=== PATIENT | male | born 1990 | race Caucasian/White ===

== ENCOUNTER 2018-05-21 15:33 | Inpatient (IN) | payer MEDICAID ==
[2018-05-21 16:02] VITALS: BMI 22.6
--- NOTE | 2018-05-21 17:22 | ED PDOC ---
Arrival/HPI - General Chief Complaint: Psychiatric Evaluation Time Seen by Provider: 05/21/18 15:50 Historian: Patient - History of Present Illness Narrative History of Present Illness (Text): 05/21/18 17:17 27-year-old male presents today brought in by his mother for psychiatric evaluation. Patient's mother states that over the past 2 months the patient has lost his job and his left him. She states since then he has been being obsessive and compulsive. She states that he has not been eating and has been taking 7 showers a day. The patient denies any complaints. He denies depression. He denies suicidal ideation. Patient denies headaches dizziness or weakness. No chest pain or shortness of breath. He states he is only here because his mother asked him to come in for evaluation. Time/Duration: > month Past Medical History - Provider Review Nursing Documentation Reviewed: Yes - Travel History Have you recently traveled outside [place] w/in the past 3 mons?: No - Infectious Disease Hx of Infectious Diseases: None - Tetanus Immunization Tetanus Immunization: Unknown - Cardiac Hx Cardiac Disorders: No - Pulmonary Hx Respiratory Disorders: No - Neurological Hx Neurological Disorder: No - HEENT Hx HEENT Disorder: No - Renal Hx Renal Disorder: No - Endocrine/Metabolic Hx Endocrine Disorders: No - Hematological/Oncological Hx Blood Disorders: No - Integumentary Hx Dermatological Disorder: No - Musculoskeletal/Rheumatological Hx Musculoskeletal Disorders: No - Gastrointestinal Hx Gastrointestinal Disorders: No - Genitourinary/Gynecological Hx Genitourinary Disorders: No - Psychiatric Hx Psychophysiologic Disorder: No Hx Substance Use: No - Past Surgical History Past Surgical History: No Previous - Suicidal Assessment Feels Threatened In Home Enviroment: No Family/Social History - Physician Review Nursing Documentation Reviewed: Yes Family/Social History: Unknown Family HX Smoking Status: Never Smoked Hx Alcohol Use: No Hx Substance Use: No Hx Substance Use Treatment: No Allergies/Home Meds Allergies/Adverse Reactions: Allergies No Known Allergies Allergy (Verified 05/21/18 20:47) Review of Systems - Review of Systems Constitutional: absent: Fatigue, Fevers Respiratory: absent: SOB, Cough Cardiovascular: absent: Chest Pain, Palpitations Gastrointestinal: absent: Abdominal Pain, Nausea, Vomiting Musculoskeletal: absent: Arthralgias, Back Pain Skin: absent: Rash, Pruritis Neurological: absent: Headache, Dizziness Psychiatric: absent: Anxiety, Depression, Suicidal Ideation Physical Exam Vital Signs Reviewed: Yes Vital Signs Temp Pulse Resp BP Pulse Ox 05/21/18 16:06 98.4 F 107 H 18 151/110 H 97 Temperature: Afebrile Blood Pressure: Hypertensive Pulse: Tachycardic Respiratory Rate: Normal Appearance: Positive for: Well-Appearing, Non-Toxic, Comfortable Pain Distress: None Mental Status: Positive for: Alert and Oriented X 3 - Systems Exam Head: Present: Atraumatic Pupils: Present: PERRL Extroacular Muscles: Present: EOMI Mouth: Present: Moist Mucous Membranes Neck: Present: Normal Range of Motion Respiratory/Chest: Present: Clear to Auscultation Cardiovascular: Present: Tachycardic. No: Murmurs Abdomen: No: Tenderness, Distention, Rebound, Guarding Back: Present: Normal Inspection Upper Extremity: Present: Normal ROM Lower Extremity: Present: Normal ROM Neurological: Present: GCS=15, Speech Normal Skin: Present: Warm, Dry, Normal Color. No: Rashes Psychiatric: Present: Alert, Oriented x 3 Medical Decision Making ED Course and Treatment: 05/21/18 17:36 Patient is nontoxic well-appearing in no distress CBC WNL CMP WNL Tylenol WNL Salicylate WNL Alcohol level WNL Urine drug screen wnl UA; wnl cxr: wnl ekg normal sinus rhythm at 64 bpm normal axis normal intervals no ST elevations pt is medically cleared for PES evaluation Patient was seen and evaluated by PES screener: linda pt signed voluntarily to Psych floor. Impression; MDD with psychotic features Followup with behavioral health - RAD Interpretation Radiology Orders: 05/21/18 16:14 CHEST PORTABLE [RAD] Stat Disposition/Present on Arrival - Present on Arrival Any Indicators Present on Arrival: No History of DVT/PE: No History of Uncontrolled Diabetes: No Urinary Catheter: No History of Decub. Ulcer: No History Surgical Site Infection Following: None - Disposition Have Diagnosis and Disposition been Completed?: Yes Diagnosis: Major depressive disorder with psychotic features Disposition: HOSPITALIZED Disposition Time: 19:22 Patient Plan: Admission Patient Problems: Current Active Problems Problem Status Onset Major depressive disorder with psychotic features Acute Condition: FAIR
[2018-05-21 18:16] LABS: ACETAMINOPHEN < 10.0 ug/ml (10.0-20.0); ALB/GLOB RATIO 1.4 (1.1-1.8); ALBUMIN 5.1 g/dL (3.0-4.8); ALT/SGPT 11 U/L (7-56); AST/SGOT 20 U/L (17-59); BLOOD UREA NITROGEN 19 mg/dL (7-21); CALCIUM 10.2 mg/dL (8.4-10.5); GFR NON-AFRICAN AMERICAN > 60; SALICYLATE < 1 mg/dL (2.0-20.0)
[2018-05-21 18:27] LABS: BARBITURATES, UR NEGATIVE (NEGATIVE); BENZODIAZEPINES, UR NEGATIVE (NEGATIVE); OPIATES, UR NEGATIVE (NEGATIVE); PHENCYCLIDINE, UR NEGATIVE (NEGATIVE)
[2018-05-21 18:30] LABS: BASO # 0.03 K/mm3 (0.0-2.0); BASO % 0.5 % (0.0-3.0); EOS # 0.1 (0.0-0.7); EOS % 0.8 % (1.5-5.0); HEMOGLOBIN 16.5 g/dL (14.0-18.0); LYMPH # 2.6 (1.2-3.4); LYMPH % 42.2 % (22.0-35.0); MEAN CELL VOLUME 87.7 fl (80.0-105.0); MEAN CORPUSCULAR HEMOGLOBIN 31.3 pg (25.0-35.0); MEAN CORPUSCULAR HGB CONC 35.7 g/dl (31.0-37.0); MEAN PLATELET VOLUME 10.3 fl (7.0-11.0); MONO # 0.6 (0.1-0.6); MONO % 10.2 % (1.0-6.0); RBC 5.27 10^6/uL (3.5-6.1); RED CELL DISTRIBUTION WIDTH 12.2 % (11.5-14.5); URINE BILIRUBIN SMALL (NEGATIVE); URINE BLOOD NEGATIVE (NEGATIVE); URINE GLUCOSE (UA) NEGATIVE (NEGATIVE); URINE LEUKOCYTE ESTERASE NEGATIVE Leu/uL (NEGATIVE); URINE PROTEIN 30 mg/dL (<30 mg/dL); URINE UROBILINOGEN 0.2 E.U./dL (<1 E.U./dL); WHITE BLOOD COUNT 6.1 10^3/uL (4.5-11.0)
[2018-05-21 18:33] LABS: URINE APPEARANCE CLEAR (CLEAR); URINE COLOR YELLOW (YELLOW)
[2018-05-21 18:44] LABS: URINE BACTERIA FEW /hpf; URINE EPITHELIAL CELLS 0 - 2 /hpf (0-5); URINE WBC 0 - 2 /hpf (0-6)
--- NOTE | 2018-05-21 18:46 | RAD ---
Date of service: 05/21/2018 HISTORY: pes COMPARISON: No prior. FINDINGS: LUNGS: The lungs are well inflated and clear. PLEURA: No pleural effusions or pneumothorax. CARDIOVASCULAR: The heart is normal in size. No aortic atherosclerotic calcifications present. OSSEOUS STRUCTURES: Within normal limits for the patient's age. VISUALIZED UPPER ABDOMEN: Normal. OTHER FINDINGS: None. IMPRESSION: No active pulmonary disease.
[2018-05-21] MEDS ORDERED: Magnesium Hydroxide Susp 30 ml UD PO PRN (20:42)
[2018-05-21] MEDS ORDERED: Alum-Mag Hydrox-Simethicone Susp (30 mL) PO PRN (20:42)
--- NOTE | 2018-05-21 21:42 | CARD ---
APPROVED REPORT Date of service: 05/21/2018 EKG Measurement Heart [id number] [id number] <Conclusion> Normal sinus rhythm Normal ECG
[2018-05-21 22:33] VITALS: O2SAT 100
--- NOTE | 2018-05-21 23:26 | PCM.BM ---
<Elida Cooper - Last Filed: 05/21/18 23:22> Treatment Plan Problems - Problems identified on initial assessmt Alteration in Emotional Status Date Initiated: 05/21/18 Time Initiated: 23:23 Assessment reference: NA Status: Active Delusion Date Initiated: 05/21/18 Time Initiated: 23:23 Assessment reference: NA Status: Active Guarded Behavior Date Initiated: 05/21/18 Time Initiated: 23:23 Assessment reference: NA Status: Active Ineffective Coping Date Initiated: 05/21/18 Time Initiated: 23:24 Assessment reference: NA Status: Active Social Isolation Date Initiated: 05/21/18 Time Initiated: 23:24 Assessment reference: NA Status: Active Treatment assets and liabiliti Patient Assests: cooperative, self-reliant, ADL independent, physically healthy, good support system, negotiates basic needs, cognitively intact Patient Liabilities: financial problems, relationship conflicts - Milieu Protocol Maintain good personal hygiene: daily Encourage regular showers, daily Remind patient to perform daily oral care, daily Assist patient to perform ADL's Conduct patient checks and document Observation sheet: Q15 minutes Maintain personal safety: every shift Educate patient to report safety concerns to staff, every shift Monitor environment for contraband/sharps Medication safety: Monitor for expected outcome, potential side effects: every shift, Assess barriers to learning: every shift, Assess readiness for medication education: every shift Discharge/Continuing Care - Education Needs Education Needs: Patient Medication, Patient Diagnosis/Disease Process, Patient Coping Skills, Patient Community resources, Patient Activities of Daily Living, Patient Nutrition, Patient Health Practices/Safety, Patient Personal Hygiene/Grooming, Patient Aftercare Safety Plan - Discharge Discharge Criteria: Tolerates medication w/o severe side effects, Free of Suicidal thoughts, Free of paranoid thoughts, Normal sleep pattern, Ability to care for self, Reduction of target symptoms <Latisha Cano - Last Filed: 05/22/18 15:29> - Diagnosis (1) Psychosis Status: Acute Interventions: 05/22/18 08:53 Psychoeducation/psychotherapy Psychopharmacology/adjustment of medications as needed/ monitoring possible side effects Evaluate pt on daily basis Compliance with medications and follow up appointments Long acting medication if pt is noncompliant with pill form Suicide and homicide risk assessment and prevention, coping strategies, safety plan Relapse prevention Reduction of symptoms Improve functional status Possible assertive community treatment Cognitive behavioral therapy Family involvement Possible social skill training as outpatient (2) OCD (obsessive compulsive disorder) Status: Acute Interventions: 05/22/18 15:29 Psychoeducation Psychopharmacology/adjustment of medications as needed/ monitoring possible side effects Evaluate pt on daily basis Compliance with medications and follow up appointments Suicide and homicide risk assessment and prevention, coping strategies, safety plan Relapse prevention Reduction of symptoms Improve functional status Family involvement CBT, SSRI, exposure response prevention as outpatient Supportive therapy <Bibi Gilman Y - Last Filed: 05/23/18 10:15> Family Contact Family involvement: Family/SO is involved Family contact: Patient agrees to contact Family contact name: Karlene Menon(mother) Family contacted how many times per week?: 2
[2018-05-22 07:19] LABS: GLUCOSE,FASTING 78 mg/dL (65-110); HDL CHOLESTEROL 56 mg/dL (29-60)
[2018-05-22 07:29] LABS: LDL CHOLESTEROL 79 mg/dL (0-129)
--- NOTE | 2018-05-22 15:29 | PCM.PSYCH ---
Initial Psychiatric Evaluation - Initial Psychiatric Evaluation Type of Admission: Voluntary Legal Status: Capacity Chief Complaint (in patient's own words): "I would not say that something is wrong with me" Patient's Reaction to Hospitalization: Patient was admitted to the psychiatric inpatient unit for evaluation and stabilization of disorganized thoughts and behavior, acting inappropriately, inability to take care of himself. History of Present Illness and Precipitating Events: Shortly, patient is a 27yr old male presently residing in [facility] with his mother and brother not known previous psychiatric history, denied history of suicidal attempts, patient was brought in by his mother for evalua tion of bizarre/disorganized behavior, patient was talking nonsense, self isolating, patient signed consent for treatment only because "I wanted to please my mom", patient requires further evaluation, stabilization, medication adjustment. Patient was seen and examined today at the treatment team meeting, patient presented with acceptable personal hygiene, appears with some psychomotor retardation, appears to be poor and unreliable historian, mood ADLs. Patient presented to be odd, seems to be responding to internal stimuli, severe thought blocking, yes no answers only, patient has very poor insight into his problems, patient does not feel that he needs to stay in the hospital, on the question why he sign himself into the hospital patient replied "I just want to please my mom", patient does not feel that he has any problems, patient reported that he does not feel depressed, patient denied hearing voices, denied seeing things, but during the interview patient was switching the glances seems like responding to internal internal stimuli, patient denied feeling paranoid but obviously presented to be guarded. Patient denied ever been abused in his life, denied any anxiety symptoms. It was documented that patient's and daughter left him about a year ago, since that time patient was depressed, when this senior mortgage underwriter asked about the Ativan, patient shrugged his shoulders and said that it is not bothering him. Patient denied any drug use, patient denied alcohol consumption, denies smoking. Patient denied any manic episodes in the past. No manic symptoms elicited. Past psychiatric history: Patient denied ever being evaluated by psychiatrist in the past, patient denied previous psychiatric admissions, patient denied suicidal attempts. Past medical history: Patient denied previous medical history, reported being healthy. Family history: Patient denied family history of mental illness denied suicidal attempts in the family. As per nursing staff observation, since the morning time patient took 3 showers, it took 2 hours for the patient to show up for breakfast, patient is constantly washing his hands, appears to be disorganized, internally preoccupied. Patient gave written consent for collateral information from mother. 05/21/18 17:45 05/21/18 17:45 Lab Results 05/22/18 06:50: TSH 3rd Generation 0.85 05/22/18 06:50: Fasting Glucose 78, Triglycerides 80, Cholesterol 158, LDL Cholesterol Direct 79, HDL Cholesterol 56 05/21/18 17:45: Alcohol, Quantitative < 10 05/21/18 17:45: Salicylates < 1 L, Acetaminophen < 10.0 L 05/21/18 17:45: Urine Opiates Screen Negative, Urine Methadone Screen Negative, Ur Barbiturates Screen Negative, Ur Phencyclidine Scrn Negative, Ur Amphetamines Screen Negative, U Benzodiazepines Scrn Negative, U Oth Cocaine Metabols Negative, U Cannabinoids Screen Negative 05/21/18 17:45: Sodium 139, Potassium 4.9, Chloride 99, Carbon Dioxide 29, Anion Gap 17, BUN 19, Creatinine 0.9, Est GFR ( Amer) > 60, Est GFR (Non-Af Amer) > 60, Random Glucose 80, Calcium 10.2, Total Bilirubin 0.9, AST 20, ALT 11, Alkaline Phosphatase 67, Total Protein 8.7 H, Albumin 5.1 H, Globulin 3.6, Albumin/Globulin Ratio 1.4 05/21/18 17:45: Urine Color Yellow, Urine Appearance Clear, Urine pH 6.0, Ur Specific Green >= 1.030, Urine Protein 30 H, Urine Glucose (UA) Negative, Urine Ketones 40 H, Urine Blood Negative, Urine Nitrate Negative, Urine Bilirubin Small H, Urine Urobilinogen 0.2, Ur Leukocyte Esterase Negative, Urine RBC None, Urine WBC 0 - 2, Ur Epithelial Cells 0 - 2, Urine Bacteria Few, Urine Other Usperm 05/21/18 17:45: WBC 6.1, RBC 5.27, Hgb 16.5, Hct 46.2, MCV 87.7, MCH 31.3, MCHC 35.7, RDW 12.2, Plt Count 309, MPV 10.3, Neut % (Auto) 46.3 L, Lymph % (Auto) 42.2 H, Pender % (Auto) 10.2 H, Eos % (Auto) 0.8 L, Baso % (Auto) 0.5, Lymph # (Auto) 2.6, Pender # (Auto) 0.6, Eos # (Auto) 0.1, Baso # (Auto) 0.03, Absolute Neuts (auto) 2.80 Vital Signs Temp Pulse Resp BP Pulse Ox 05/22/18 07:28 97.0 F L 51 L 20 106/72 05/21/18 20:58 98 F 91 H 18 130/74 100 05/21/18 20:03 97.8 F 78 18 134/81 98 05/21/18 19:23 97.8 F 78 18 134/81 98 05/21/18 16:06 98.4 F 107 H 18 151/110 H 97 The patient failed the outpatient lower level of care: Yes Current Medications: Active Medications Generic Name Dose Route Start Last Admin Trade Name Freq PRN Reason Stop Dose Admin Acetaminophen 650 mg 05/21/18 20:42 Tylenol 325mg Tab PO Q6H PRN Pain, moderate (4-7) Al Hydrox/Mg Hydrox/Simethicone 30 ml 05/21/18 20:42 Maalox Plus 30 Ml PO DAILY PRN Indigestion / Heartburn Lorazepam 2 mg 05/21/18 20:42 Ativan IM Q6H PRN Agitation Protocol Lorazepam 2 mg 05/21/18 20:42 Ativan PO Q6H PRN Psychosis/anxiety Protocol Magnesium Hydroxide 30 ml 05/21/18 20:42 Milk Of Magnesia PO DAILY PRN Constipation Quetiapine Fumarate 50 mg 05/21/18 22:00 05/21/18 21:34 Seroquel PO 50 mg HS PASCUAL Administration Protocol Ziprasidone 20 mg 05/21/18 20:42 Geodon Cap PO Q6H PRN Psychosis/agitation Protocol Ziprasidone 20 mg 05/21/18 20:42 Geodon Inj IM Q6H PRN Agitation Protocol Zolpidem Tartrate 5 mg 05/21/18 20:42 Ambien PO HS PRN Insomnia Protocol Present on Admission - Present on Admission Any Indicators Present on Admission: No Review of Systems - Review of Systems Systems not reviewed;Unavailable: Acuity of Condition - Constitutional Constitutional: As Per HPI - EENT Eyes: As Per HPI Ears: As Per HPI Nose/Mouth/Throat: As Per HPI - Cardiovascular Cardiovascular: As Per HPI - Respiratory Respiratory: As Per HPI - Gastrointestinal Gastrointestinal: As Per HPI - Genitourinary Genitourinary: As Per HPI - Reproductive: Male Reproductive:Male: As Per HPI - Musculoskeletal Musculoskeletal: As Per HPI - Integumentary Integumentary: As Per HPI - Neurological Neurological: As Per HPI - Psychiatric Psychiatric: As Per HPI - Endocrine Endocrine: As Per HPI - Hematologic/Lymphatic Hematologic: As Per HPI Past Patient History - Past Psychiatric History Previous Treatment History: None Prior Professional Help: See HPI Prior Psychiatric Treatment: See HPI At what hospital: See HPI Duration: See HPI Nature of Treatment: See HPI Explanation of prior treatment: See HPI - PSYCHIATRIC Hx Psychophysiologic Disorder: No Hx Substance Use: No - Infectious Disease Hx of Infectious Diseases: None - Tetanus Immunizations Tetanus Immunization: Unknown - CARDIAC Hx Cardiac Disorders: No - PULMONARY Hx Respiratory Disorders: No - NEUROLOGICAL Hx Neurological Disorder: No - HEENT Hx HEENT Problems: No - RENAL Hx Chronic Kidney Disease: No - ENDOCRINE/METABOLIC Hx Endocrine Disorders: No - HEMATOLOGICAL/ONCOLOGICAL Hx Blood Disorders: No - INTEGUMENTARY Hx Dermatological Problems: No - MUSCULOSKELETAL/RHEUMATOLOGICAL Hx Musculoskeletal Disorders: No - GASTROINTESTINAL Hx Gastrointestinal Disorders: No - GENITOURINARY/GYNECOLOGICAL Hx Genitourinary Disorders: No - SURGICAL HISTORY Hx Surgeries: No - Medical/Surgical History Reviewed & confirmed: by [place] Meds Allergies/Adverse Reactions: Allergies Allergy/AdvReac Type Severity Reaction Status Date / Time No Known Allergies Allergy Verified 05/21/18 20:47 Mental Status Examination - Personal Presentation Personal Presentation: Looks stated age - Affect Affect: Flat - Motor Activity Motor Activity: Psychomotor Retardation - Reliability in Providing Information Reliability in Providing Information: Poor, due to alteration in thoughts, Poor, due to altered mood, Poor, due to cognitve impairment - Speech Speech: Other (Underproductive low volume) - Mood Mood: Neutral ("I feel fine") - Formal Thought Process Formal Thought Process: Paranoia, Loosening of associations, Other (Disorganized thoughts, concrete) - Obsessions/Compulsions Obsessions: Yes Compulsions: Yes Description of Obsession/Compulsion: Obsessed with washing his hands, taking showers - Cognitive Functions Orientation: Person, Place, Situation, Time Sensorium: Alert Abstract Thinking: [place] Estimate of Intelligence: Average - Risk Risk: Diminished functioning - Strength & Assets Inventory Strength & Assets Inventory: Family support, Employment history, Cooperative - Limitations Limitations: Other (Severe symptoms, poor insight) Psychiatric Physical Exam - Physical Exam Reviewed and confirmed: Emergency Department Physical Exam Results - Vital Signs Recent Vital Signs: Last Vital Signs Temp 97.0 F L 05/22/18 07:28 Pulse 51 L 05/22/18 07:28 Resp 20 05/22/18 07:28 BP 106/72 05/22/18 07:28 Pulse Ox 100 05/21/18 20:58 - Labs Result Diagrams: 05/21/18 17:45 05/21/18 17:45 Labs: Laboratory Results - last 24 hr 05/21/18 05/21/18 05/21/18 17:45 17:45 17:45 WBC 6.1 RBC 5.27 Hgb 16.5 Hct 46.2 MCV 87.7 MCH 31.3 MCHC 35.7 RDW 12.2 Plt Count 309 MPV 10.3 Neut % (Auto) 46.3 L Lymph % (Auto) 42.2 H Pender % (Auto) 10.2 H Eos % (Auto) 0.8 L Baso % (Auto) 0.5 Lymph # (Auto) 2.6 Pender # (Auto) 0.6 Eos # (Auto) 0.1 Baso # (Auto) 0.03 Absolute Neuts (auto) 2.80 Sodium 139 Potassium 4.9 Chloride 99 Carbon Dioxide 29 Anion Gap 17 BUN 19 Creatinine 0.9 Est GFR ( Amer) > 60 Est GFR (Non-Af Amer) > 60 Random Glucose 80 Fasting Glucose Calcium 10.2 Total Bilirubin 0.9 AST 20 ALT 11 Alkaline Phosphatase 67 Total Protein 8.7 H Albumin 5.1 H Globulin 3.6 Albumin/Globulin Ratio 1.4 Triglycerides Cholesterol LDL Cholesterol Direct HDL Cholesterol TSH 3rd Generation Urine Color Yellow Urine Appearance Clear Urine pH 6.0 Ur Specific Green >= 1.030 Urine Protein 30 H Urine Glucose (UA) Negative Urine Ketones 40 H Urine Blood Negative Urine Nitrate Negative Urine Bilirubin Small H Urine Urobilinogen 0.2 Ur Leukocyte Esterase Negative Urine RBC None Urine WBC 0 - 2 Ur Epithelial Cells 0 - 2 Urine Bacteria Few Urine Other Usperm Salicylates Urine Opiates Screen Urine Methadone Screen Acetaminophen Ur Barbiturates Screen Ur Phencyclidine Scrn Ur Amphetamines Screen U Benzodiazepines Scrn U Oth Cocaine Metabols U Cannabinoids Screen Alcohol, Quantitative 05/21/18 05/21/18 05/21/18 17:45 17:45 17:45 WBC RBC Hgb Hct MCV MCH MCHC RDW Plt Count MPV Neut % (Auto) Lymph % (Auto) Pender % (Auto) Eos % (Auto) Baso % (Auto) Lymph # (Auto) Pender # (Auto) Eos # (Auto) Baso # (Auto) Absolute Neuts (auto) Sodium Potassium Chloride Carbon Dioxide Anion Gap BUN Creatinine Est GFR ( Amer) Est GFR (Non-Af Amer) Random Glucose Fasting Glucose Calcium Total Bilirubin AST ALT Alkaline Phosphatase Total Protein Albumin Globulin Albumin/Globulin Ratio Triglycerides Cholesterol LDL Cholesterol Direct HDL Cholesterol TSH 3rd Generation Urine Color Urine Appearance Urine pH Ur Specific Green Urine Protein Urine Glucose (UA) Urine Ketones Urine Blood Urine Nitrate Urine Bilirubin Urine Urobilinogen Ur Leukocyte Esterase Urine RBC Urine WBC Ur Epithelial Cells Urine Bacteria Urine Other Salicylates < 1 L Urine Opiates Screen Negative Urine Methadone Screen Negative Acetaminophen < 10.0 L Ur Barbiturates Screen Negative Ur Phencyclidine Scrn Negative Ur Amphetamines Screen Negative U Benzodiazepines Scrn Negative U Oth Cocaine Metabols Negative U Cannabinoids Screen Negative Alcohol, Quantitative < 10 05/22/18 05/22/18 06:50 06:50 WBC RBC Hgb Hct MCV MCH MCHC RDW Plt Count MPV Neut % (Auto) Lymph % (Auto) Pender % (Auto) Eos % (Auto) Baso % (Auto) Lymph # (Auto) Pender # (Auto) Eos # (Auto) Baso # (Auto) Absolute Neuts (auto) Sodium Potassium Chloride Carbon Dioxide Anion Gap BUN Creatinine Est GFR ( Amer) Est GFR (Non-Af Amer) Random Glucose Fasting Glucose 78 Calcium Total Bilirubin AST ALT Alkaline Phosphatase Total Protein Albumin Globulin Albumin/Globulin Ratio Triglycerides 80 Cholesterol 158 LDL Cholesterol Direct 79 HDL Cholesterol 56 TSH 3rd Generation 0.85 Urine Color Urine Appearance Urine pH Ur Specific Green Urine Protein Urine Glucose (UA) Urine Ketones Urine Blood Urine Nitrate Urine Bilirubin Urine Urobilinogen Ur Leukocyte Esterase Urine RBC Urine WBC Ur Epithelial Cells Urine Bacteria Urine Other Salicylates Urine Opiates Screen Urine Methadone Screen Acetaminophen Ur Barbiturates Screen Ur Phencyclidine Scrn Ur Amphetamines Screen U Benzodiazepines Scrn U Oth Cocaine Metabols U Cannabinoids Screen Alcohol, Quantitative - EKG Data EKG Interpreted by: ER Physician EKG shows normal: Sinus rhythm DSM Plan - DSM 5 DSM 5 Diagnosis: Psychosis NOS Rule out major depressive disorder, severe with psychosis Rule out OCD - Recommended/Plan of Treatment Treatment Recommendations and Plan of Treatment: PALMA consultation for discharge plan and social issues Med management: Risperdal 0.5 mg twice a day and at the nighttime for psychosis Ativan 0.5 mg twice a day and the delayed time for catatonia possible anxiety Collateral information will be obtained from patient's family Follow up on labs Will monitor closely Pt was educated about risk/benefits and alternatives of medications, coping strategies (safety plan, suicide prevention), relapse prevention, importance of follow up with psychiatrist and therapist, stay away from drugs/alcohol/smoking Projected ELOS: 7 days Prognosis: Fair Discharge Plan and Discharge Criteria: Mood will be stable, pt will be more hopeful, will be not psychotic or anxious, will be tolerating medications well, will not have major side effects, will be able to function, will not pose threat to self or others. - Tobacco Cessation Tobacco Use Status for the last 30 days: Non User Tobacco Use Treatment Practical Counseling Provided: No Tobacco Use Treatment FDA-Approved Cessation Medication Provided: No - Alcohol or Substance Abuse Does the patient have an Alcohol or Substance Abuse Disorder: No Initial Psych Certification - Initial Certification I certify that the inpatient psychiatric facility admission was medically necessary for either: Treatment which could reasonbly be expected to improve pt's condition I estimate of hospitalization is necessary for proper treatment of the patient: 7 Unit of Time: Days My plans for post-hospital care for this patient are: Day treatment program
--- NOTE | 2018-05-23 15:19 | PCM.PYCHPN ---
Psychiatric Progress Note - Psychiatric Progress Note Patient seen today, length of contact: 30 minutes Patient Chief Complaint: "...."pt was just shrugging his shoulders, not talking, smiling inappropriately Problems Identified/Issues Discussed: This health underwriter attempted to discuss risk/benefits and alternatives of medications discussed, suicide/ homicide prevention, past psychiatric h/o, current psychiatric symptoms, medical problems, risk/benefits and alternatives of medi cations, medications compliance, coping strategies, substance abuse h/o, relapse prevention, importance of follow up with psychiatrist and therapist, discharge plan. Patient was just smiling back to this health underwriter, shrugging his shoulders. Medical Problems: See HPI Diagnostic Results: 05/21/18 17:45 05/21/18 17:45 Lab Results 05/22/18 06:50: RPR Nonreactive 05/22/18 06:50: TSH 3rd Generation 0.85 05/22/18 06:50: Fasting Glucose 78, Triglycerides 80, Cholesterol 158, LDL Cholesterol Direct 79, HDL Cholesterol 56 05/21/18 17:45: Alcohol, Quantitative < 10 05/21/18 17:45: Salicylates < 1 L, Acetaminophen < 10.0 L 05/21/18 17:45: Urine Opiates Screen Negative, Urine Methadone Screen Negative, Ur Barbiturates Screen Negative, Ur Phencyclidine Scrn Negative, Ur Amphetamines Screen Negative, U Benzodiazepines Scrn Negative, U Oth Cocaine Metabols Negative, U Cannabinoids Screen Negative 05/21/18 17:45: Sodium 139, Potassium 4.9, Chloride 99, Carbon Dioxide 29, Anion Gap 17, BUN 19, Creatinine 0.9, Est GFR ( Amer) > 60, Est GFR (Non-Af Amer) > 60, Random Glucose 80, Calcium 10.2, Total Bilirubin 0.9, AST 20, ALT 11, Alkaline Phosphatase 67, Total Protein 8.7 H, Albumin 5.1 H, Globulin 3.6, Albumin/Globulin Ratio 1.4 05/21/18 17:45: Urine Color Yellow, Urine Appearance Clear, Urine pH 6.0, Ur Specific [place] >= 1.030, Urine Protein 30 H, Urine Glucose (UA) Negative, Urine Ketones 40 H, Urine Blood Negative, Urine Nitrate Negative, Urine Bilirubin Small H, Urine Urobilinogen 0.2, Ur Leukocyte Esterase Negative, Urine RBC None, Urine WBC 0 - 2, Ur Epithelial Cells 0 - 2, Urine Bacteria Few, Urine Other Usperm 05/21/18 17:45: WBC 6.1, RBC 5.27, Hgb 16.5, Hct 46.2, MCV 87.7, MCH 31.3, MCHC 35.7, RDW 12.2, Plt Count 309, MPV 10.3, Neut % (Auto) 46.3 L, Lymph % (Auto) 42.2 H, [place] % (Auto) 10.2 H, Eos % (Auto) 0.8 L, Baso % (Auto) 0.5, Lymph # (Auto) 2.6, [place] # (Auto) 0.6, Eos # (Auto) 0.1, Baso # (Auto) 0.03, Absolute Neuts (auto) 2.80 Vital Signs Temp Pulse Resp BP Pulse Ox 05/23/18 07:03 97.3 F L 57 L 20 124/58 L 05/22/18 16:00 98 H 124/72 05/22/18 07:28 97.0 F L 51 L 20 106/72 05/21/18 20:58 98 F 91 H 18 130/74 100 05/21/18 20:03 97.8 F 78 18 134/81 98 05/21/18 19:23 97.8 F 78 18 134/81 98 05/21/18 16:06 98.4 F 107 H 18 151/110 H 97 DSM 5 Symptoms Update: Shortly, patient is a 27yr old male presently residing in [facility] with his mother and brother not known previous psychiatric history, denied history of suicidal attempts, patient was brought in by his mother for evaluation of bizarre/disorganized behavior, patient was talking nonsense, self isolating, patient signed consent for treatment only because "I wanted to please my mom", patient requires further evaluation, stabilization, medication adjustment. Patient was seen and examined today in his room, patient presented to be psychotic, not talking, just smiling inappropriately to this health underwriter, patient was shrugging his shoulders for all of the questions. As per nursing report patient seems to be psychotic, taking a lot of showers, not socializing with others. Collaterals from the patient's mother, patient started to have OCD symptoms since summer, prior to that pt was depressed over the fact that his was not allowing him to talk to his daughter. Patient never been admitted to the psychiatric inpatient unit, patient never tried to kill himself before, patient has history of marijuana abuse. Please see social media content manager notes for more detailed information. So far patient tolerates medications well, no side effects observed or reported, aims 0, no EPS impression: DSM 5 Diagnosis: Psychosis NOS Rule out major depressive disorder, severe with psychosis Rule out OCD Medication Change: Yes (Prozac started) Medical Record Reviewed: Yes Consults ordered or reviewed: Neurology consult was called Mental Status Examination - Cognitive Function Orientation: Person, Place, Situation, Time Attention: Poor Concentration: Poor Association: Loose - Mood Mood: Neutral ("I feel fine") - Affect Affect: Flat - Formal Thought Process Formal Thought Process: Paranoia, Loosening of associations, Other (Disorganized thoughts, concrete) - Suicidal Ideation Suicidal Ideation: No - Homicidal Ideation Homicidal Ideation: No Goal/Treatment Plan - Goal/Treatment Plan Need for Continued Stay: Remain at risks for inpatient hospitalization, Severe depression anxiety, Discharge may exacerbated symptoms, Severe functional impairment Progress Toward Problem(s) and Goals/Treatment Plan: consultation for discharge plan and social issues Med management: Risperdal 0.5 mg twice a day and 1mg at the nighttime for psychosis Ativan 0.5 mg twice a day and the delayed time for catatonia possible anxiety prozac 10mg po daily for depression/anxiety/OCD Collateral information will be obtained from patient's family Follow up on labs Will monitor closely Pt was educated about risk/benefits and alternatives of medications, coping strategies (safety plan, suicide prevention), relapse prevention, importance of follow up with psychiatrist and therapist, stay away from drugs/alcohol/smoking Estimated Date of D/C: 05/29/18
--- NOTE | 2018-05-24 13:08 | MRI ---
Date of service: 05/24/2018 PROCEDURE: MRI BRAIN WITHOUT CONTRAST HISTORY: rule out ischemia COMPARISON: None available. TECHNIQUE: Multiplanar, multisequence MR images of the brain were obtained without intravenous contrast enhancement. FINDINGS: HEMORRHAGE: None DWI: No evidence of an acute or early subacute infarction. BRAIN PARENCHYMA: No mass effect or edema. No atrophy or chronic microvascular ischemic changes. VENTRICLES: Unremarkable. No hydrocephalus. CRANIUM: Unremarkable. ORBITS: Grossly unremarkable. PARANASAL SINUSES/MASTOIDS: Clear VASCULAR SYSTEM: Skull base flow voids intact. OTHER FINDINGS: None. IMPRESSION: Unremarkable non contrast enhanced MRI of the brain.
--- NOTE | 2018-05-24 13:36 | CP.PCM.CON ---
Past Patient History - Infectious Disease Hx of Infectious Diseases: None - Tetanus Immunizations Tetanus Immunization: Unknown - Past Social History Smoking Status: Never Smoked - CARDIAC Hx Cardiac Disorders: No - PULMONARY Hx Respiratory Disorders: No - NEUROLOGICAL Hx Neurological Disorder: No - HEENT Hx HEENT Problems: No - RENAL Hx Chronic Kidney Disease: No - ENDOCRINE/METABOLIC Hx Endocrine Disorders: No - HEMATOLOGICAL/ONCOLOGICAL Hx Blood Disorders: No - INTEGUMENTARY Hx Dermatological Problems: No - MUSCULOSKELETAL/RHEUMATOLOGICAL Hx Musculoskeletal Disorders: No - GASTROINTESTINAL Hx Gastrointestinal Disorders: No - GENITOURINARY/GYNECOLOGICAL Hx Genitourinary Disorders: No - PSYCHIATRIC Hx Psychophysiologic Disorder: No Hx Substance Use: No - SURGICAL HISTORY Hx Surgeries: No Meds Allergies/Adverse Reactions: Allergies Allergy/AdvReac Type Severity Reaction Status Date / Time No Known Allergies Allergy Verified 05/21/18 20:47 - Medications Medications: Current Medications Acetaminophen (Tylenol 325mg Tab) 650 mg PO Q6H PRN PRN Reason: Pain, moderate (4-7) Al Hydrox/Mg Hydrox/Simethicone (Maalox Plus 30 Ml) 30 ml PO DAILY PRN PRN Reason: Indigestion / Heartburn Fluoxetine HCl (Prozac) 10 mg PO DAILY PASCUAL Last Admin: 05/24/18 08:12 Dose: 10 mg Lorazepam (Ativan) 2 mg IM Q6H PRN; Protocol PRN Reason: Agitation Lorazepam (Ativan) 2 mg PO Q6H PRN; Protocol PRN Reason: Psychosis/anxiety Lorazepam (Ativan) 0.5 mg PO BID PASCUAL; Protocol Last Admin: 05/24/18 08:12 Dose: 0.5 mg Lorazepam (Ativan) 0.5 mg PO HS PASCUAL; Protocol Last Admin: 05/23/18 21:08 Dose: 0.5 mg Magnesium Hydroxide (Milk Of Magnesia) 30 ml PO DAILY PRN PRN Reason: Constipation Risperidone (Risperdal Tab) 0.5 mg PO BID PASCUAL; Protocol Last Admin: 05/24/18 08:12 Dose: 0.5 mg Risperidone (Risperdal Tab) 1 mg PO HS PASCUAL; Protocol Last Admin: 05/23/18 21:08 Dose: 1 mg Ziprasidone (Geodon Cap) 20 mg PO Q6H PRN; Protocol PRN Reason: Psychosis/agitation Last Admin: 05/22/18 22:16 Dose: 20 mg Ziprasidone (Geodon Inj) 20 mg IM Q6H PRN; Protocol PRN Reason: Agitation Zolpidem Tartrate (Ambien) 5 mg PO HS PRN; Protocol PRN Reason: Insomnia Last Admin: 05/23/18 22:35 Dose: 5 mg Results - Vital Signs Recent Vital Signs: Last Vital Signs Temp 97.8 F 05/24/18 07:33 Pulse 80 05/24/18 07:33 Resp 20 05/24/18 07:33 BP 119/70 05/24/18 07:33 Pulse Ox 100 05/21/18 20:58 - Labs Result Diagrams: 05/21/18 17:45 05/21/18 17:45
--- NOTE | 2018-05-24 13:41 | CP.PCM.CON ---
<Jacob Stark - Last Filed: 05/24/18 13:46> History of Present Illness - History of Present Illness History of Present Illness: Jacob Stark PGY2 Neurology Consult Note for Dr. Finch 27-year-old male with no significant past medical history was brought in by his mother for psychiatric evaluation. Patient's mother states that over the past 2 months the patient has lost his job and his left him. She states since then he has been being obsessive and compulsive, not eating and has been taking 7 showers a day. On review of systems patient would not speak and answer questions with a nod. He wrote on paper that he wishes not to talk and no reason was given. Neurology has been consulted to rule out organic causes of his his behavior. PMH: none PSH: none Allergies: none Meds: see MAR Family History: denies Review of Systems - Review of Systems Review of Systems: unable to obtain because patent did not want to speak verbally Past Patient History - Infectious Disease Hx of Infectious Diseases: None - Tetanus Immunizations Tetanus Immunization: Unknown - Past Social History Smoking Status: Never Smoked - CARDIAC Hx Cardiac Disorders: No - PULMONARY Hx Respiratory Disorders: No - NEUROLOGICAL Hx Neurological Disorder: No - HEENT Hx HEENT Problems: No - RENAL Hx Chronic Kidney Disease: No - ENDOCRINE/METABOLIC Hx Endocrine Disorders: No - HEMATOLOGICAL/ONCOLOGICAL Hx Blood Disorders: No - INTEGUMENTARY Hx Dermatological Problems: No - MUSCULOSKELETAL/RHEUMATOLOGICAL Hx Musculoskeletal Disorders: No - GASTROINTESTINAL Hx Gastrointestinal Disorders: No - GENITOURINARY/GYNECOLOGICAL Hx Genitourinary Disorders: No - PSYCHIATRIC Hx Psychophysiologic Disorder: No Hx Substance Use: No - SURGICAL HISTORY Hx Surgeries: No Meds Allergies/Adverse Reactions: Allergies Allergy/AdvReac Type Severity Reaction Status Date / Time No Known Allergies Allergy Verified 05/21/18 20:47 - Medications Medications: Current Medications Acetaminophen (Tylenol 325mg Tab) 650 mg PO Q6H PRN PRN Reason: Pain, moderate (4-7) Al Hydrox/Mg Hydrox/Simethicone (Maalox Plus 30 Ml) 30 ml PO DAILY PRN PRN Reason: Indigestion / Heartburn Fluoxetine HCl (Prozac) 10 mg PO DAILY PASCUAL Last Admin: 05/24/18 08:12 Dose: 10 mg Lorazepam (Ativan) 2 mg IM Q6H PRN; Protocol PRN Reason: Agitation Lorazepam (Ativan) 2 mg PO Q6H PRN; Protocol PRN Reason: Psychosis/anxiety Lorazepam (Ativan) 0.5 mg PO BID PASCUAL; Protocol Last Admin: 05/24/18 08:12 Dose: 0.5 mg Lorazepam (Ativan) 0.5 mg PO HS PASCUAL; Protocol Last Admin: 05/23/18 21:08 Dose: 0.5 mg Magnesium Hydroxide (Milk Of Magnesia) 30 ml PO DAILY PRN PRN Reason: Constipation Risperidone (Risperdal Tab) 0.5 mg PO BID PASCUAL; Protocol Last Admin: 05/24/18 08:12 Dose: 0.5 mg Risperidone (Risperdal Tab) 1 mg PO HS PASCUAL; Protocol Last Admin: 05/23/18 21:08 Dose: 1 mg Ziprasidone (Geodon Cap) 20 mg PO Q6H PRN; Protocol PRN Reason: Psychosis/agitation Last Admin: 05/22/18 22:16 Dose: 20 mg Ziprasidone (Geodon Inj) 20 mg IM Q6H PRN; Protocol PRN Reason: Agitation Zolpidem Tartrate (Ambien) 5 mg PO HS PRN; Protocol PRN Reason: Insomnia Last Admin: 05/23/18 22:35 Dose: 5 mg Physical Exam - Constitutional Appears: Well, Non-toxic, No Acute Distress - Head Exam Head Exam: ATRAUMATIC, NORMAL INSPECTION, NORMOCEPHALIC - Eye Exam Eye Exam: EOMI, Normal appearance - ENT Exam ENT Exam: Mucous Membranes Moist - Respiratory Exam Respiratory Exam: Clear to Auscultation Bilateral, NORMAL BREATHING PATTERN - Cardiovascular Exam Cardiovascular Exam: REGULAR RHYTHM - Neurological Exam Neurological exam: Alert, CN II-XII Intact, Normal Gait, Oriented x3, Reflexes Normal Additional comments: normal gait, no focal sensory or motor deficits noted, cerebellar function in t act, negative romberg Results - Vital Signs Recent Vital Signs: Last Vital Signs Temp 97.8 F 05/24/18 07:33 Pulse 80 05/24/18 07:33 Resp 20 05/24/18 07:33 BP 119/70 05/24/18 07:33 Pulse Ox 100 05/21/18 20:58 - Labs Result Diagrams: 05/21/18 17:45 05/21/18 17:45 Assessment & Plan - Assessment and Plan (Free Text) Plan: Psychosis rule out organic cause -no focal deficits -recommend folate, B12, TSH -MRI brain -EEG -further management as per psychiatry for psychosis <Helena Finch - Last Filed: 06/02/18 10:32> Meds - Medications Medications: Current Medications Acetaminophen (Tylenol 325mg Tab) 650 mg PO Q6H PRN PRN Reason: Pain, moderate (4-7) Al Hydrox/Mg Hydrox/Simethicone (Maalox Plus 30 Ml) 30 ml PO DAILY PRN PRN Reason: Indigestion / Heartburn Benztropine Mesylate (Cogentin) 1 mg PO HS PASCUAL Last Admin: 06/01/18 22:08 Dose: 1 mg Benztropine Mesylate (Cogentin) 1 mg PO DAILY PASCUAL Last Admin: 06/02/18 08:31 Dose: 1 mg Fluoxetine HCl (Prozac) 50 mg PO DAILY PASCUAL Last Admin: 06/02/18 08:30 Dose: 50 mg Lorazepam (Ativan) 2 mg IM Q6H PRN; Protocol PRN Reason: Agitation Lorazepam (Ativan) 2 mg PO Q6H PRN; Protocol PRN Reason: Psychosis/anxiety Lorazepam (Ativan) 1 mg PO DAILY PASCUAL; Protocol Last Admin: 06/02/18 08:30 Dose: 1 mg Lorazepam (Ativan) 2 mg PO HS PASCUAL; Protocol Last Admin: 06/01/18 22:07 Dose: 2 mg Magnesium Hydroxide (Milk Of Magnesia) 30 ml PO DAILY PRN PRN Reason: Constipation Risperidone (Risperdal Tab) 3 mg PO HS PASCUAL; Protocol Last Admin: 06/01/18 22:13 Dose: 3 mg Risperidone (Risperdal Tab) 3 mg PO DAILY PASCUAL; Protocol Last Admin: 06/02/18 08:31 Dose: 3 mg Ziprasidone (Geodon Cap) 20 mg PO Q6H PRN; Protocol PRN Reason: Psychosis/agitation Last Admin: 05/22/18 22:16 Dose: 20 mg Ziprasidone (Geodon Inj) 20 mg IM Q6H PRN; Protocol PRN Reason: Agitation Results - Vital Signs Recent Vital Signs: Last Vital Signs Temp 97.8 F 06/02/18 07:00 Pulse 88 06/02/18 07:00 Resp 18 06/02/18 07:00 BP 118/76 06/02/18 07:00 Pulse Ox 100 05/21/18 20:58 - Labs Result Diagrams: 05/21/18 17:45 05/21/18 17:45 Assessment & Plan - Assessment and Plan (Free Text) Plan: All medical record entries made by the Resident were at my direction and personally dictated by me. I have reviewed the chart and agree that the record accurately reflects my personal performance of the history, physical exam, medical decision making, and the department course for this patient. I have also personally directed, reviewed, and agree with the discharge instructions and disposition Patient with psychosis, who is now selectively mute, and will need MRI BRain to further evaluate. EEG, DR. finch Neurology
--- NOTE | 2018-05-24 15:56 | PCM.PYCHPN ---
Psychiatric Progress Note - Psychiatric Progress Note Patient seen today, length of contact: 30 minutes Patient Chief Complaint: "...."pt was just shrugging his shoulders, not talking, smiling inappropriately Problems Identified/Issues Discussed: This chief underwriter attempted to discuss risk/benefits and alternatives of medications discussed, suicide/ homicide prevention, past psychiatric h/o, current psychiatric symptoms, medical problems, risk/benefits and alternatives of medi cations, medications compliance, coping strategies, substance abuse h/o, relapse prevention, importance of follow up with psychiatrist and therapist, discharge plan. Patient was just smiling back to this chief underwriter, shrugging his shoulders. Medical Problems: See HPI Diagnostic Results: 05/21/18 17:45 05/21/18 17:45 Lab Results 05/22/18 06:50: RPR Nonreactive 05/22/18 06:50: TSH 3rd Generation 0.85 05/22/18 06:50: Fasting Glucose 78, Triglycerides 80, Cholesterol 158, LDL Cholesterol Direct 79, HDL Cholesterol 56 05/21/18 17:45: Alcohol, Quantitative < 10 05/21/18 17:45: Salicylates < 1 L, Acetaminophen < 10.0 L 05/21/18 17:45: Urine Opiates Screen Negative, Urine Methadone Screen Negative, Ur Barbiturates Screen Negative, Ur Phencyclidine Scrn Negative, Ur Amphetamines Screen Negative, U Benzodiazepines Scrn Negative, U Oth Cocaine Metabols Negative, U Cannabinoids Screen Negative 05/21/18 17:45: Sodium 139, Potassium 4.9, Chloride 99, Carbon Dioxide 29, Anion Gap 17, BUN 19, Creatinine 0.9, Est GFR ( Amer) > 60, Est GFR (Non-Af Amer) > 60, Random Glucose 80, Calcium 10.2, Total Bilirubin 0.9, AST 20, ALT 11, Alkaline Phosphatase 67, Total Protein 8.7 H, Albumin 5.1 H, Globulin 3.6, Albumin/Globulin Ratio 1.4 05/21/18 17:45: Urine Color Yellow, Urine Appearance Clear, Urine pH 6.0, Ur Specific [place] >= 1.030, Urine Protein 30 H, Urine Glucose (UA) Negative, Urine Ketones 40 H, Urine Blood Negative, Urine Nitrate Negative, Urine Bilirubin Small H, Urine Urobilinogen 0.2, Ur Leukocyte Esterase Negative, Urine RBC None, Urine WBC 0 - 2, Ur Epithelial Cells 0 - 2, Urine Bacteria Few, Urine Other Usperm 05/21/18 17:45: WBC 6.1, RBC 5.27, Hgb 16.5, Hct 46.2, MCV 87.7, MCH 31.3, MCHC 35.7, RDW 12.2, Plt Count 309, MPV 10.3, Neut % (Auto) 46.3 L, Lymph % (Auto) 42.2 H, [place] % (Auto) 10.2 H, Eos % (Auto) 0.8 L, Baso % (Auto) 0.5, Lymph # (Auto) 2.6, [place] # (Auto) 0.6, Eos # (Auto) 0.1, Baso # (Auto) 0.03, Absolute Neuts (auto) 2.80 Vital Signs Temp Pulse Resp BP Pulse Ox 05/23/18 07:03 97.3 F L 57 L 20 124/58 L 05/22/18 16:00 98 H 124/72 05/22/18 07:28 97.0 F L 51 L 20 106/72 05/21/18 20:58 98 F 91 H 18 130/74 100 05/21/18 20:03 97.8 F 78 18 134/81 98 05/21/18 19:23 97.8 F 78 18 134/81 98 05/21/18 16:06 98.4 F 107 H 18 151/110 H 97 DSM 5 Symptoms Update: Shortly, patient is a 27yr old male presently residing in [facility], [place] with his mother and brother not known previous psychiatric history, denied history of suicidal attempts, patient was brought in by his mother for evaluation of bizarre/disorganized behavior, patient was talking nonsense, self isolating, patient signed consent for treatment only because "I wanted to please my mom", patient requires further evaluation, stabilization, medication adjustment. Patient was seen and examined today in his room, patient presented to be psychotic, not talking, just smiling inappropriately to this chief underwriter, patient was shrugging his shoulders for all of the questions. pt was seen by neurology, MRI WNL, EEG was ordered, B12 ordered, consult appreciated. As per nursing report patient seems to be psychotic, taking a lot of showers, not socializing with others. 05/23/18 Collaterals from the patient's mother, patient started to have OCD symptoms since summer, prior to that pt was depressed over the fact that his was not allowing him to talk to his daughter. Patient never been admitted to the psychiatric inpatient unit, patient never tried to kill himself before, patient has history of marijuana abuse. Please see social work case manager notes for more detailed information. So far patient tolerates medications well, no side effects observed or reported, aims 0, no EPS impression: DSM 5 Diagnosis: Psychosis NOS Rule out major depressive disorder, severe with psychosis Rule out OCD Medication Change: No ( ) Medical Record Reviewed: Yes Mental Status Examination - Cognitive Function Orientation: Person, Place, Situation, Time Attention: Poor Concentration: Poor Association: Loose - Mood Mood: Neutral ("I feel fine") - Affect Affect: Flat - Formal Thought Process Formal Thought Process: Paranoia, Loosening of associations, Other (Disorganized thoughts, concrete) - Suicidal Ideation Suicidal Ideation: No - Homicidal Ideation Homicidal Ideation: No Goal/Treatment Plan - Goal/Treatment Plan Need for Continued Stay: Remain at risks for inpatient hospitalization, Severe depression anxiety, Discharge may exacerbated symptoms, Severe functional impairment Progress Toward Problem(s) and Goals/Treatment Plan: consultation for discharge plan and social issues Med management: Risperdal 0.5 mg twice a day and 1mg at the nighttime for psychosis Ativan 0.5 mg twice a day and the delayed time for catatonia possible anxiety prozac 20mg po daily for depression/anxiety/OCD Collateral information will be obtained from patient's family Follow up on labs Will monitor closely Pt was educated about risk/benefits and alternatives of medications, coping strategies (safety plan, suicide prevention), relapse prevention, importance of follow up with psychiatrist and therapist, stay away from drugs/alcohol/smoking Estimated Date of D/C: 05/29/18
--- NOTE | 2018-05-25 10:17 | PCM.PYCHPN ---
Psychiatric Progress Note - Psychiatric Progress Note Patient seen today, length of contact: 30 minutes Problems Identified/Issues Discussed: I reviewed assessment and recent notes. Patient was interviewed at bedside. He is superficially cooperative with my questioning though doesn't appear engaged or motivated in his care. Minimally verbal despite my encouragement. Patient reports that he feels "okay" and denies any new concerns. Specifically denies side effects, discomfort, pain or hallucinations. Patient is internally preoccupied and guarded though not responding to internal stimuli. Staff note that he continues to be disorganized, oddly related, aloof and smiling inappropriately on the unit. He keeps to herself. Nonetheless he has been compliant and there have been no major behavioral issues. Diagnostic Results: Psychosis NOS Rule out major depressive disorder, severe with psychosis Rule out OCD Medication Change: No ( ) Medical Record Reviewed: Yes Mental Status Examination - Cognitive Function Orientation: Person, Place, Situation, Time Attention: Poor Concentration: Poor Association: Loose - Mood Mood: Neutral ("I feel fine") - Affect Affect: Flat - Formal Thought Process Formal Thought Process: Paranoia, Loosening of associations, Other (Disorganized thoughts, concrete) - Suicidal Ideation Suicidal Ideation: No - Homicidal Ideation Homicidal Ideation: No Goal/Treatment Plan - Goal/Treatment Plan Need for Continued Stay: Remain at risks for inpatient hospitalization, Severe depression anxiety, Discharge may exacerbated symptoms, Severe functional impairment Progress Toward Problem(s) and Goals/Treatment Plan: * c/w current tx and plan * No new weekend lab results thus far * Vitals reviewed and noted below: Selected Entries 05/24/18 05/24/18 07:33 16:43 Temperature 97.8 F Pulse Rate 80 79 Respiratory 20 Rate Blood Pressure 119/70 110/58 L Estimated Date of D/C: 05/29/18
--- NOTE | 2018-05-26 11:18 | PCM.PYCHPN ---
Psychiatric Progress Note - Psychiatric Progress Note Patient seen today, length of contact: 30 minutes Problems Identified/Issues Discussed: I reviewed recent notes and patient was interviewed at bedside again. He is oriented x3 and superficially cooperative with my questioning. Remembers me from my visit yesterday. He still doesn't appear engaged or motivated but smiles more during our interaction. Remains minimally verbal despite my encouragement. Patient reports that he feels "okay" and nods in agreement when I ask if he feels improved. He cannot elaborate on how he feels improved. Patient denies any new concerns. Specifically denies side effects, discomfort, pain or hallucinations. Patient is internally preoccupied and guarded though not responding to internal stimuli. Staff note that he continues to be disorganized, oddly related, aloof and smiling inappropriately on the unit. He keeps to herself and needs a lot of encouragement by staff to verbally communicate. Nonetheless he has been compliant and there have been no major behavioral issues. Diagnostic Results: Psychosis NOS Rule out major depressive disorder, severe with psychosis Rule out OCD Medication Change: Yes (risperdal increased and cogentin initiated) Medical Record Reviewed: Yes Mental Status Examination - Cognitive Function Orientation: Person, Place, Situation, Time Attention: Poor Concentration: Poor Association: Loose - Mood Mood: Neutral ("I feel fine") - Affect Affect: Flat - Formal Thought Process Formal Thought Process: Paranoia, Loosening of associations, Other (Disorganized thoughts, concrete) - Suicidal Ideation Suicidal Ideation: No - Homicidal Ideation Homicidal Ideation: No Goal/Treatment Plan - Goal/Treatment Plan Need for Continued Stay: Remain at risks for inpatient hospitalization, Severe depression anxiety, Discharge may exacerbated symptoms, Severe functional impairment Progress Toward Problem(s) and Goals/Treatment Plan: * c/w current tx and plan * Risperdal increased to 1 mg po bid and 1 mg HS for disorganization/negative symptoms. * Cogentin initiated at 1 mg HS on 05/26/18 for EPS prophylaxis * Vitals reviewed and noted below: Selected Entries 05/25/18 05/25/18 07:00 16:17 Temperature 98 F Pulse Rate 68 74 Respiratory 18 Rate Blood Pressure 101/51 L 121/68 * New weekend labs noted below: 05/25/18 06:30 Vitamin B12 543 Estimated Date of D/C: 05/29/18
--- NOTE | 2018-05-27 08:54 | PCM.EEG ---
Electroencephalogram Report - Electroencephalogram Report Procedure Date: 05/25/18 Medication: Risperdal, Fluoxetine, Lorazepam Interpretation: Technical Information: This was a 16 -channel EEG, 1-channel EKG routine EEG performed using an [employer] machine. Electrodes were applied using the 10/20 international placement system. Start 11;58 End; 12;48 Total 50 min Clinical Information: alter mental status During resting wakefulness there was a symmetric posterior dominant rhythm at 8.5-9.5 Hz, 30-50 uV, which was reactive to eye opening and closing. Drowsiness (12;32) was associated with fragmentation of the posterior dominant rhythm and with slow roving eye movements. Hyperventilation was performed no changes in the record seen. Photic stimulation was performed and there were no changes on the record. Focal abnormality; none ECG was associated with a normal sinus rhythm. Impression: This is a normal awake and drowsy electroencephalogram.
--- NOTE | 2018-05-27 13:18 | PCM.PYCHPN ---
Psychiatric Progress Note - Psychiatric Progress Note Patient seen today, length of contact: 30 minutes Patient Chief Complaint: "...."pt was just shrugging his shoulders, not talking, smiling inappropriately Problems Identified/Issues Discussed: This typewriter aligner attempted to discuss risk/benefits and alternatives of medications discussed, suicide/ homicide prevention, past psychiatric h/o, current psychiatric symptoms, medical problems, risk/benefits and alternatives of medi cations, medications compliance, coping strategies, substance abuse h/o, relapse prevention, importance of follow up with psychiatrist and therapist, discharge plan. Patient was just smiling back to this typewriter aligner, shrugging his shoulders. Medical Problems: See HPI Diagnostic Results: 05/21/18 17:45 05/21/18 17:45 Lab Results 05/22/18 06:50: RPR Nonreactive 05/22/18 06:50: TSH 3rd Generation 0.85 05/22/18 06:50: Fasting Glucose 78, Triglycerides 80, Cholesterol 158, LDL Cholesterol Direct 79, HDL Cholesterol 56 05/21/18 17:45: Alcohol, Quantitative < 10 05/21/18 17:45: Salicylates < 1 L, Acetaminophen < 10.0 L 05/21/18 17:45: Urine Opiates Screen Negative, Urine Methadone Screen Negative, Ur Barbiturates Screen Negative, Ur Phencyclidine Scrn Negative, Ur Amphetamines Screen Negative, U Benzodiazepines Scrn Negative, U Oth Cocaine Metabols Negative, U Cannabinoids Screen Negative 05/21/18 17:45: Sodium 139, Potassium 4.9, Chloride 99, Carbon Dioxide 29, Anion Gap 17, BUN 19, Creatinine 0.9, Est GFR ( Amer) > 60, Est GFR (Non-Af Amer) > 60, Random Glucose 80, Calcium 10.2, Total Bilirubin 0.9, AST 20, ALT 11, Alkaline Phosphatase 67, Total Protein 8.7 H, Albumin 5.1 H, Globulin 3.6, Albumin/Globulin Ratio 1.4 05/21/18 17:45: Urine Color Yellow, Urine Appearance Clear, Urine pH 6.0, Ur Specific [place] >= 1.030, Urine Protein 30 H, Urine Glucose (UA) Negative, Urine Ketones 40 H, Urine Blood Negative, Urine Nitrate Negative, Urine Bilirubin Small H, Urine Urobilinogen 0.2, Ur Leukocyte Esterase Negative, Urine RBC None, Urine WBC 0 - 2, Ur Epithelial Cells 0 - 2, Urine Bacteria Few, Urine Other Usperm 05/21/18 17:45: WBC 6.1, RBC 5.27, Hgb 16.5, Hct 46.2, MCV 87.7, MCH 31.3, MCHC 35.7, RDW 12.2, Plt Count 309, MPV 10.3, Neut % (Auto) 46.3 L, Lymph % (Auto) 42.2 H, [place] % (Auto) 10.2 H, Eos % (Auto) 0.8 L, Baso % (Auto) 0.5, Lymph # (Auto) 2.6, [place] # (Auto) 0.6, Eos # (Auto) 0.1, Baso # (Auto) 0.03, Absolute Neuts (auto) 2.80 Vital Signs Temp Pulse Resp BP Pulse Ox 05/23/18 07:03 97.3 F L 57 L 20 124/58 L 05/22/18 16:00 98 H 124/72 05/22/18 07:28 97.0 F L 51 L 20 106/72 05/21/18 20:58 98 F 91 H 18 130/74 100 05/21/18 20:03 97.8 F 78 18 134/81 98 05/21/18 19:23 97.8 F 78 18 134/81 98 05/21/18 16:06 98.4 F 107 H 18 151/110 H 97 DSM 5 Symptoms Update: Shortly, patient is a 27yr old male presently residing in [facility] with his mother and brother not known previous psychiatric history, denied history of suicidal attempts, patient was brought in by his mother for evaluation of bizarre/disorganized behavior, patient was talking nonsense, self isolating, patient signed consent for treatment only because "I wanted to please my mom", patient requires further evaluation, stabilization, medication adjustment. Patient was seen and examined today in his room , patient presented to be psychotic, not talking, just smiling inappropriately to this typewriter aligner, patient was shrugging his shoulders for all of the questions. pt was seen by neurologist, MR Morales WNL, EEG was ordered, B12 ordered, consult appreciated. As per nursing report patient seems to be psychotic, not talking, not socializing with others, self isolating. 05/23/18 Collaterals from the patient's mother, patient started to have OCD symptoms since summer, prior to that pt was depressed over the fact that his was not allowing him to talk to his daughter. Patient never been admitted to the psychiatric inpatient unit, patient never tried to kill himself before, patient has history of marijuana abuse. Please see manager social notes for more detailed information. So far patient tolerates medications well, no side effects observed or reported, aims 0, no EPS impression: DSM 5 Diagnosis: Psychosis NOS Rule out major depressive disorder, severe with psychosis Rule out OCD Medication Change: Yes (Risperdal increased, Ativan increased) Medical Record Reviewed: Yes Mental Status Examination - Cognitive Function Orientation: Person, Place, Situation, Time Attention: Poor Concentration: Poor Association: Loose - Mood Mood: Neutral ("I feel fine") - Affect Affect: Flat - Formal Thought Process Formal Thought Process: Paranoia, Loosening of associations, Other (Disorganized thoughts, concrete) - Suicidal Ideation Suicidal Ideation: No - Homicidal Ideation Homicidal Ideation: No Goal/Treatment Plan - Goal/Treatment Plan Need for Continued Stay: Remain at risks for inpatient hospitalization, Severe depression anxiety, Discharge may exacerbated symptoms, Severe functional impairment Progress Toward Problem(s) and Goals/Treatment Plan: consultation for discharge plan and social issues Med management: Risperdal 1mg twice a day and 2mg at the nighttime for psychosis Ativan 0.5 mg twice a day and 1 mg the delayed time for catatonia possible anxiety prozac 20mg po daily for depression/anxiety/OCD Collateral information will be obtained from patient's family Follow up on labs Will monitor closely Pt was educated about risk/benefits and alternatives of medications, coping strategies (safety plan, suicide prevention), relapse prevention, importance of follow up with psychiatrist and therapist, stay away from drugs/alcohol/smoking Estimated Date of D/C: 05/29/18
--- NOTE | 2018-05-28 15:40 | PCM.PYCHPN ---
Psychiatric Progress Note - Psychiatric Progress Note Patient seen today, length of contact: 30 minutes Patient Chief Complaint: "...."pt was just shrugging his shoulders, not talking, smiling inappropriately Problems Identified/Issues Discussed: This commercial underwriter attempted to discuss risk/benefits and alternatives of medications discussed, suicide/ homicide prevention, past psychiatric h/o, current psychiatric symptoms, medical problems, risk/benefits and alternatives of medi cations, medications compliance, coping strategies, substance abuse h/o, relapse prevention, importance of follow up with psychiatrist and therapist, discharge plan. Patient was just smiling back to this commercial underwriter, shrugging his shoulders. Medical Problems: See HPI Diagnostic Results: 05/21/18 17:45 05/21/18 17:45 Lab Results 05/22/18 06:50: RPR Nonreactive 05/22/18 06:50: TSH 3rd Generation 0.85 05/22/18 06:50: Fasting Glucose 78, Triglycerides 80, Cholesterol 158, LDL Cholesterol Direct 79, HDL Cholesterol 56 05/21/18 17:45: Alcohol, Quantitative < 10 05/21/18 17:45: Salicylates < 1 L, Acetaminophen < 10.0 L 05/21/18 17:45: Urine Opiates Screen Negative, Urine Methadone Screen Negative, Ur Barbiturates Screen Negative, Ur Phencyclidine Scrn Negative, Ur Amphetamines Screen Negative, U Benzodiazepines Scrn Negative, U Oth Cocaine Metabols Negative, U Cannabinoids Screen Negative 05/21/18 17:45: Sodium 139, Potassium 4.9, Chloride 99, Carbon Dioxide 29, Anion Gap 17, BUN 19, Creatinine 0.9, Est GFR ( Amer) > 60, Est GFR (Non-Af Amer) > 60, Random Glucose 80, Calcium 10.2, Total Bilirubin 0.9, AST 20, ALT 11, Alkaline Phosphatase 67, Total Protein 8.7 H, Albumin 5.1 H, Globulin 3.6, Albumin/Globulin Ratio 1.4 05/21/18 17:45: Urine Color Yellow, Urine Appearance Clear, Urine pH 6.0, Ur Specific [place] >= 1.030, Urine Protein 30 H, Urine Glucose (UA) Negative, Urine Ketones 40 H, Urine Blood Negative, Urine Nitrate Negative, Urine Bilirubin Small H, Urine Urobilinogen 0.2, Ur Leukocyte Esterase Negative, Urine RBC None, Urine WBC 0 - 2, Ur Epithelial Cells 0 - 2, Urine Bacteria Few, Urine Other Usperm 05/21/18 17:45: WBC 6.1, RBC 5.27, Hgb 16.5, Hct 46.2, MCV 87.7, MCH 31.3, MCHC 35.7, RDW 12.2, Plt Count 309, MPV 10.3, Neut % (Auto) 46.3 L, Lymph % (Auto) 42.2 H, [place] % (Auto) 10.2 H, Eos % (Auto) 0.8 L, Baso % (Auto) 0.5, Lymph # (Auto) 2.6, [place] # (Auto) 0.6, Eos # (Auto) 0.1, Baso # (Auto) 0.03, Absolute Neuts (auto) 2.80 Vital Signs Temp Pulse Resp BP Pulse Ox 05/23/18 07:03 97.3 F L 57 L 20 124/58 L 05/22/18 16:00 98 H 124/72 05/22/18 07:28 97.0 F L 51 L 20 106/72 05/21/18 20:58 98 F 91 H 18 130/74 100 05/21/18 20:03 97.8 F 78 18 134/81 98 05/21/18 19:23 97.8 F 78 18 134/81 98 05/21/18 16:06 98.4 F 107 H 18 151/110 H 97 DSM 5 Symptoms Update: Shortly, patient is a 27yr old male presently residing in [facility] with his mother and brother not known previous psychiatric history, denied history of suicidal attempts, patient was brought in by his mother for evaluation of bizarre/disorganized behavior, patient was talking nonsense, self isolating, patient signed consent for treatment only because "I wanted to please my mom", patient requires further evaluation, stabilization, medication adjustment. Patient was seen and examined today at the treatment team meeting room, patient presented to be psychotic, not talking, just smiling inappropriately to this commercial underwriter, patient was shrugging his shoulders for all of the questions. pt was se en by neurologist, MRI WNL, EEG was ordered, B12 ordered, consult appreciated. Medication teaching provided, symptoms most likely related to psychosis, pt does not talk for the past 7days. at the same time pt has some positive changes, pt does not have obsessive showering, pt is more visible in the unit, started to attend groups. 05/23/18 Collaterals from the patient's mother, patient started to have OCD symptoms since summer, prior to that pt was depressed over the fact that his was not allowing him to talk to his daughter. Patient never been admitted to the psychiatric inpatient unit, patient never tried to kill himself before, patient has history of marijuana abuse. Please see social media content manager notes for more detailed information. So far patient tolerates medications well, no side effects observed or reported, aims 0, no EPS impression: DSM 5 Diagnosis: Psychosis NOS Rule out major depressive disorder, severe with psychosis Rule out OCD Medication Change: Yes (Risperdal increased) Medical Record Reviewed: Yes Mental Status Examination - Cognitive Function Orientation: Person (Follow-up), Place, Situation, Time Attention: Poor Concentration: Poor Association: Loose - Mood Mood: Neutral ("I feel fine") - Affect Affect: Flat - Formal Thought Process Formal Thought Process: Paranoia, Loosening of associations, Other (Disorganized thoughts, concrete) - Suicidal Ideation Suicidal Ideation: No - Homicidal Ideation Homicidal Ideation: No Goal/Treatment Plan - Goal/Treatment Plan Need for Continued Stay: Remain at risks for inpatient hospitalization, Severe depression anxiety, Discharge may exacerbated symptoms, Severe functional impairment Progress Toward Problem(s) and Goals/Treatment Plan: consultation for discharge plan and social issues Med management: Risperdal 2mg twice a day and 2mg at the nighttime for psychosis Ativan 0.5 mg twice a day and 1 mg the delayed time for catatonia possible anxiety prozac 20mg po daily for depression/anxiety/OCD Collateral information will be obtained from patient's family Follow up on labs Will monitor closely Pt was educated about risk/benefits and alternatives of medications, coping strategies (safety plan, suicide prevention), relapse prevention, importance of follow up with psychiatrist and therapist, stay away from drugs/alcohol/smoking -Medical the patient Blaming Estimated Date of D/C: 05/29/18
--- NOTE | 2018-05-29 14:28 | PCM.PYCHPN ---
Psychiatric Progress Note - Psychiatric Progress Note Patient seen today, length of contact: 30 minutes Patient Chief Complaint: "...."pt was just shrugging his shoulders, not talking, smiling inappropriately Problems Identified/Issues Discussed: Symptoms, reasons for not talking, family meeting, future plans. Medical Problems: See HPI Diagnostic Results: 05/21/18 17:45 05/21/18 17:45 Lab Results 05/22/18 06:50: RPR Nonreactive 05/22/18 06:50: TSH 3rd Generation 0.85 05/22/18 06:50: Fasting Glucose 78, Triglycerides 80, Cholesterol 158, LDL Cholesterol Direct 79, HDL Cholesterol 56 05/21/18 17:45: Alcohol, Quantitative < 10 05/21/18 17:45: Salicylates < 1 L, Acetaminophen < 10.0 L 05/21/18 17:45: Urine Opiates Screen Negative, Urine Methadone Screen Negative, Ur Barbiturates Screen Negative, Ur Phencyclidine Scrn Negative, Ur Amphetamines Screen Negative, U Benzodiazepines Scrn Negative, U Oth Cocaine Metabols Negative, U Cannabinoids Screen Negative 05/21/18 17:45: Sodium 139, Potassium 4.9, Chloride 99, Carbon Dioxide 29, Anion Gap 17, BUN 19, Creatinine 0.9, Est GFR ( Amer) > 60, Est GFR (Non-Af Amer) > 60, Random Glucose 80, Calcium 10.2, Total Bilirubin 0.9, AST 20, ALT 11, Alkaline Phosphatase 67, Total Protein 8.7 H, Albumin 5.1 H, Globulin 3.6, Albumin/Globulin Ratio 1.4 05/21/18 17:45: Urine Color Yellow, Urine Appearance Clear, Urine pH 6.0, Ur Specific [place] >= 1.030, Urine Protein 30 H, Urine Glucose (UA) Negative, Urine Ketones 40 H, Urine Blood Negative, Urine Nitrate Negative, Urine Bilirubin Small H, Urine Urobilinogen 0.2, Ur Leukocyte Esterase Negative, Urine RBC None, Urine WBC 0 - 2, Ur Epithelial Cells 0 - 2, Urine Bacteria Few, Urine Other Usperm 05/21/18 17:45: WBC 6.1, RBC 5.27, Hgb 16.5, Hct 46.2, MCV 87.7, MCH 31.3, MCHC 35.7, RDW 12.2, Plt Count 309, MPV 10.3, Neut % (Auto) 46.3 L, Lymph % (Auto) 42.2 H, [place] % (Auto) 10.2 H, Eos % (Auto) 0.8 L, Baso % (Auto) 0.5, Lymph # (Auto) 2.6, [place] # (Auto) 0.6, Eos # (Auto) 0.1, Baso # (Auto) 0.03, Absolute Neuts (auto) 2.80 Vital Signs Temp Pulse Resp BP Pulse Ox 05/23/18 07:03 97.3 F L 57 L 20 124/58 L 05/22/18 16:00 98 H 124/72 05/22/18 07:28 97.0 F L 51 L 20 106/72 05/21/18 20:58 98 F 91 H 18 130/74 100 05/21/18 20:03 97.8 F 78 18 134/81 98 05/21/18 19:23 97.8 F 78 18 134/81 98 05/21/18 16:06 98.4 F 107 H 18 151/110 H 97 DSM 5 Symptoms Update: Shortly, patient is a 27yr old male presently residing in [facility] with his mother and brother not known previous psychiatric history, denied history of suicidal attempts, patient was brought in by his mother for evaluation of bizarre/disorganized behavior, patient was talking nonsense, self isolating, patient signed consent for treatment only because "I wanted to please my mom", patient requires further evaluation, stabilization, medication adjustment. Patient was seen and examined today at the treatment team meeting, patient presented to be psychotic, not talking, just smiling inappropriately to this copy writer, patient was shrugging his shoulders for all of the questions. Patient was given an assignment yesterday about his improvement in comparison of the time of admission and now. good sign is that pt work on his to do list, pt said at the time of admission "Before hospital: uncontrollable bathing, showers and hand washing, unnoticed behavior of germophobia In hospital: shower once a day wash hand, before and after meals, controlled germophobia and behavior(s) Goals after Hospial: continue to studying and prepare to school, find an outside activity to join" When this copy writer asked about his reasons of not talking patient just shrugs his shoulders, this copy writer asked patient to write down his reasons, after few minutes of thinking patient came out with the idea "I am not talking because I have bad breath due to cavities." Family meeting requested, patient agreed. Medication teaching provided, symptoms most likely related to psychosis, pt does not talk for the past 7days. at the same time pt has some positive changes, pt does not have obsessive showering, pt is more visible in the unit, started to attend groups. 05/23/18 Collaterals from the patient's mother, patient started to have OCD symptoms since summer, prior to that pt was depressed over the fact that his was not allowing him to talk to his daughter. Patient never been admitted to the psychiatric inpatient unit, patient never tried to kill himself before, patient has history of marijuana abuse. Please see licensed master social worker notes for more detailed information. So far patient tolerates medications well, no side effects observed or reported, aims 0, no EPS impression: DSM 5 Diagnosis: Psychosis NOS Rule out major depressive disorder, severe with psychosis Rule out OCD Medication Change: No (Risperdal increased yesterday) Medical Record Reviewed: Yes Mental Status Examination - Cognitive Function Orientation: Person (Follow-up), Place, Situation, Time Attention: Poor Concentration: Poor Association: Loose - Mood Mood: Neutral ("I feel fine") - Affect Affect: Flat - Formal Thought Process Formal Thought Process: Paranoia, Loosening of associations, Other (Disorganized thoughts, concrete) - Suicidal Ideation Suicidal Ideation: No - Homicidal Ideation Homicidal Ideation: No Goal/Treatment Plan - Goal/Treatment Plan Need for Continued Stay: Remain at risks for inpatient hospitalization, Severe depression anxiety, Discharge may exacerbated symptoms, Severe functional impairment Progress Toward Problem(s) and Goals/Treatment Plan: consultation for discharge plan and social issues Med management: Risperdal 2mg twice a day and 2mg at the nighttime for psychosis Ativan 0.5 mg twice a day and 1 mg the delayed time for catatonia possible anxiety prozac 20mg po daily for depression/anxiety/OCD Collateral information will be obtained from patient's family Family meeting requested Follow up on labs Will monitor closely Pt was educated about risk/benefits and alternatives of medications, coping strategies (safety plan, suicide prevention), relapse prevention, importance of follow up with psychiatrist and therapist, stay away from drugs/alcohol/smoking -Medical the patient Blaming Estimated Date of D/C: 05/31/18
--- NOTE | 2018-05-30 15:06 | PCM.PYCHPN ---
Psychiatric Progress Note - Psychiatric Progress Note Patient seen today, length of contact: 30 minutes Patient Chief Complaint: "...."pt was just shrugging his shoulders, not talking, smiling inappropriately Problems Identified/Issues Discussed: Symptoms, reasons for not talking, family meeting, future plans. Medical Problems: See HPI Diagnostic Results: 05/21/18 17:45 05/21/18 17:45 Lab Results 05/22/18 06:50: RPR Nonreactive 05/22/18 06:50: TSH 3rd Generation 0.85 05/22/18 06:50: Fasting Glucose 78, Triglycerides 80, Cholesterol 158, LDL Cholesterol Direct 79, HDL Cholesterol 56 05/21/18 17:45: Alcohol, Quantitative < 10 05/21/18 17:45: Salicylates < 1 L, Acetaminophen < 10.0 L 05/21/18 17:45: Urine Opiates Screen Negative, Urine Methadone Screen Negative, Ur Barbiturates Screen Negative, Ur Phencyclidine Scrn Negative, Ur Amphetamines Screen Negative, U Benzodiazepines Scrn Negative, U Oth Cocaine Metabols Negative, U Cannabinoids Screen Negative 05/21/18 17:45: Sodium 139, Potassium 4.9, Chloride 99, Carbon Dioxide 29, Anion Gap 17, BUN 19, Creatinine 0.9, Est GFR ( Amer) > 60, Est GFR (Non-Af Amer) > 60, Random Glucose 80, Calcium 10.2, Total Bilirubin 0.9, AST 20, ALT 11, Alkaline Phosphatase 67, Total Protein 8.7 H, Albumin 5.1 H, Globulin 3.6, Albumin/Globulin Ratio 1.4 05/21/18 17:45: Urine Color Yellow, Urine Appearance Clear, Urine pH 6.0, Ur Specific [place] >= 1.030, Urine Protein 30 H, Urine Glucose (UA) Negative, Urine Ketones 40 H, Urine Blood Negative, Urine Nitrate Negative, Urine Bilirubin Small H, Urine Urobilinogen 0.2, Ur Leukocyte Esterase Negative, Urine RBC None, Urine WBC 0 - 2, Ur Epithelial Cells 0 - 2, Urine Bacteria Few, Urine Other Usperm 05/21/18 17:45: WBC 6.1, RBC 5.27, Hgb 16.5, Hct 46.2, MCV 87.7, MCH 31.3, MCHC 35.7, RDW 12.2, Plt Count 309, MPV 10.3, Neut % (Auto) 46.3 L, Lymph % (Auto) 42.2 H, [place] % (Auto) 10.2 H, Eos % (Auto) 0.8 L, Baso % (Auto) 0.5, Lymph # (Auto) 2.6, [place] # (Auto) 0.6, Eos # (Auto) 0.1, Baso # (Auto) 0.03, Absolute Neuts (auto) 2.80 Vital Signs Temp Pulse Resp BP Pulse Ox 05/23/18 07:03 97.3 F L 57 L 20 124/58 L 05/22/18 16:00 98 H 124/72 05/22/18 07:28 97.0 F L 51 L 20 106/72 05/21/18 20:58 98 F 91 H 18 130/74 100 05/21/18 20:03 97.8 F 78 18 134/81 98 05/21/18 19:23 97.8 F 78 18 134/81 98 05/21/18 16:06 98.4 F 107 H 18 151/110 H 97 DSM 5 Symptoms Update: Shortly, patient is a 27yr old male presently residing in [facility] with his mother and brother not known previous psychiatric history, denied history of suicidal attempts, patient was brought in by his mother for evaluation of bizarre/disorganized behavior, patient was talking nonsense, self isolating, patient signed consent for treatment only because "I wanted to please my mom", patient requires further evaluation, stabilization, medication adjustment. Patient was seen and examined today next to the nursing station, patient presented to be psychotic, not talking, just smiling inappropriately to this brief writer, patient was shrugging his shoulders for all of the questions. bag worker contacted patient's mother for family meeting, patient mother will come to the hospital tomorrow. As per mother patient had similar episodes in the past, last year patient did not talk for 2 weeks. Medication teaching provided, symptoms most likely related to psychosis, pt does not talk for the past 7days. at the same time pt has some positive changes, pt does not have obsessive showering, pt is more visible in the unit, started to attend groups. 05/23/18 Collaterals from the patient's mother, patient started to have OCD symptoms since summer, prior to that pt was depressed over the fact that his was not allowing him to talk to his daughter. Patient never been admitted to the psych iatric inpatient unit, patient never tried to kill himself before, patient has history of marijuana abuse. Please see social science instructor notes for more detailed information. So far patient tolerates medications well, no side effects observed or reported, aims 0, no EPS impression: DSM 5 Diagnosis: Psychosis NOS Rule out major depressive disorder, severe with psychosis Rule out OCD Medication Change: Yes (Prozac was increased to 40 mg daily) Medical Record Reviewed: Yes Mental Status Examination - Cognitive Function Orientation: Person (Follow-up), Place, Situation, Time Attention: Poor Concentration: Poor Association: Loose - Mood Mood: Neutral ("I feel fine") - Affect Affect: Flat - Formal Thought Process Formal Thought Process: Paranoia, Loosening of associations, Other (Disorganized thoughts, concrete) - Suicidal Ideation Suicidal Ideation: No - Homicidal Ideation Homicidal Ideation: No Goal/Treatment Plan - Goal/Treatment Plan Need for Continued Stay: Remain at risks for inpatient hospitalization, Severe depression anxiety, Discharge may exacerbated symptoms, Severe functional impairment Progress Toward Problem(s) and Goals/Treatment Plan: consultation for discharge plan and social issues Med management: Risperdal 2mg twice a day and 2mg at the nighttime for psychosis Ativan 0.5 mg twice a day and 1 mg the delayed time for catatonia possible anxiety prozac 40mg po daily for depression/anxiety/OCD Collateral information will be obtained from patient's family Family meeting requested Follow up on labs Will monitor closely Pt was educated about risk/benefits and alternatives of medications, coping strategies (safety plan, suicide prevention), relapse prevention, importance of follow up with psychiatrist and therapist, stay away from drugs/alcohol/smoking Family meeting scheduled for tomorrow May 31, 2018 Estimated Date of D/C: 05/31/18
--- NOTE | 2018-05-31 10:11 | PCM.PYCHPN ---
Psychiatric Progress Note - Psychiatric Progress Note Patient seen today, length of contact: 30 minutes Patient Chief Complaint: "...."pt was just shrugging his shoulders, not talking, smiling inappropriately Problems Identified/Issues Discussed: Symptoms, reasons for not talking, family meeting, future plans. Medical Problems: See HPI Diagnostic Results: 05/21/18 17:45 05/21/18 17:45 Lab Results 05/22/18 06:50: RPR Nonreactive 05/22/18 06:50: TSH 3rd Generation 0.85 05/22/18 06:50: Fasting Glucose 78, Triglycerides 80, Cholesterol 158, LDL Cholesterol Direct 79, HDL Cholesterol 56 05/21/18 17:45: Alcohol, Quantitative < 10 05/21/18 17:45: Salicylates < 1 L, Acetaminophen < 10.0 L 05/21/18 17:45: Urine Opiates Screen Negative, Urine Methadone Screen Negative, Ur Barbiturates Screen Negative, Ur Phencyclidine Scrn Negative, Ur Amphetamines Screen Negative, U Benzodiazepines Scrn Negative, U Oth Cocaine Metabols Negative, U Cannabinoids Screen Negative 05/21/18 17:45: Sodium 139, Potassium 4.9, Chloride 99, Carbon Dioxide 29, Anion Gap 17, BUN 19, Creatinine 0.9, Est GFR ( Amer) > 60, Est GFR (Non-Af Amer) > 60, Random Glucose 80, Calcium 10.2, Total Bilirubin 0.9, AST 20, ALT 11, Alkaline Phosphatase 67, Total Protein 8.7 H, Albumin 5.1 H, Globulin 3.6, Albumin/Globulin Ratio 1.4 05/21/18 17:45: Urine Color Yellow, Urine Appearance Clear, Urine pH 6.0, Ur Specific [place] >= 1.030, Urine Protein 30 H, Urine Glucose (UA) Negative, Urine Ketones 40 H, Urine Blood Negative, Urine Nitrate Negative, Urine Bilirubin Small H, Urine Urobilinogen 0.2, Ur Leukocyte Esterase Negative, Urine RBC None, Urine WBC 0 - 2, Ur Epithelial Cells 0 - 2, Urine Bacteria Few, Urine Other Usperm 05/21/18 17:45: WBC 6.1, RBC 5.27, Hgb 16.5, Hct 46.2, MCV 87.7, MCH 31.3, MCHC 35.7, RDW 12.2, Plt Count 309, MPV 10.3, Neut % (Auto) 46.3 L, Lymph % (Auto) 42.2 H, [place] % (Auto) 10.2 H, Eos % (Auto) 0.8 L, Baso % (Auto) 0.5, Lymph # (Auto) 2.6, [place] # (Auto) 0.6, Eos # (Auto) 0.1, Baso # (Auto) 0.03, Absolute Neuts (auto) 2.80 Vital Signs Temp Pulse Resp BP Pulse Ox 05/23/18 07:03 97.3 F L 57 L 20 124/58 L 05/22/18 16:00 98 H 124/72 05/22/18 07:28 97.0 F L 51 L 20 106/72 05/21/18 20:58 98 F 91 H 18 130/74 100 05/21/18 20:03 97.8 F 78 18 134/81 98 05/21/18 19:23 97.8 F 78 18 134/81 98 05/21/18 16:06 98.4 F 107 H 18 151/110 H 97 DSM 5 Symptoms Update: Shortly, patient is a 27yr old male presently residing in [facility] with his mother and brother not known previous psychiatric history, denied history of suicidal attempts, patient was brought in by his mother for evaluation of bizarre/disorganized behavior, patient was talking nonsense, self isolating, patient signed consent for treatment only because "I wanted to please my mom", patient requires further evaluation, stabilization, medication adjustment. Patient was seen at the family meeting, pt's mother Karlene Menon([phone]), and this proposal manager writer participated. pt's mother reported that pt had similar episode about a year ago, pt did not talk for two weeks. mother said that he was explaining later that he didn't want to talk because he did not want to get in trouble by talking. this is pt's first hospitalization, pt had "issues even before", pt was not able to held a job, he lost many jobs and quit 4 colleges because pt was very late for job and school. pt was involved into the relationship with the lady when she was and was raising not his biological daughter, over summer pt moved in [place] from [place] in order to find a job and support his family, but recently pt got to know that his ex- started to date with another male, pt was upset, "he looked like he is lost, he was anxious, shaking, was taking showers nonstop, washing his hands constantly that his hands skin was pilling...". during the meeting patient presented to be psychotic, not talking, just smiling inappropriately to this proposal manager writer, patient was shrugging his shoulders for all of the questions. mother does not feel that pt is ready for discharge, moreover pt will be not able to go for intake appo intment. mother said that schizophrenia runs in family, two of mother's aunts are suffers from schizophrenia with similar symptoms, not talking, started in their 40th. Medication teaching provided, symptoms most likely related to psychosis, pt does not talk for the past 10days. at the same time pt has some positive changes, pt does not have obsessive showering, pt is more visible in the unit, started to attend groups. So far patient tolerates medications well, no side effects observed or reported, aims 0, no EPS impression: DSM 5 Diagnosis: Psychosis NOS Rule out major depressive disorder, severe with psychosis Rule out OCD Medication Change: Yes (prozac increased, ativan/cogentin/risperdal redistributed) Medical Record Reviewed: Yes Mental Status Examination - Cognitive Function Orientation: Person (Follow-up), Place, Situation, Time Attention: Poor (s) Concentration: Poor Association: WNL (some improvement) Fund of Knowledge: WNL - Mood Mood: Neutral ("....") - Affect Affect: Flat - Formal Thought Process Formal Thought Process: Paranoia (cannot be excluded) - Suicidal Ideation Suicidal Ideation: No - Homicidal Ideation Homicidal Ideation: No Goal/Treatment Plan - Goal/Treatment Plan Need for Continued Stay: Remain at risks for inpatient hospitalization, Severe depression anxiety, Discharge may exacerbated symptoms, Severe functional impairment Progress Toward Problem(s) and Goals/Treatment Plan: SW consultation for discharge plan and social issues Med management: Risperdal 3mg twice a day and 3mg at the nighttime for psychosis Ativan 1 mg daily and 2mg hs for catatonia possible anxiety prozac 50mg po daily for depression/anxiety/OCD cogentin 1mg amhs for possible EPS ambien d/c Collateral information will be obtained from patient's family Family meeting requested Follow up on labs Will monitor closely Pt was educated about risk/benefits and alternatives of medications, coping strategies (safety plan, suicide prevention), relapse prevention, importance of follow up with psychiatrist and therapist, stay away from drugs/alcohol/smoking Family meeting scheduled for tomorrow May 31, 2018 Estimated Date of D/C: 06/03/18
--- NOTE | 2018-06-01 09:28 | PCM.PYCHPN ---
Psychiatric Progress Note - Psychiatric Progress Note Patient seen today, length of contact: 30 minutes Problems Identified/Issues Discussed: I reviewed recent notes and patient was interviewed at bedside. He is oriented x3 and superficially cooperative with my questioning. Remembers me from my visits last weekend. He still doesn't appear engaged or motivated but smiles during our interaction. Remains minimally verbal despite my encouragement. Patient reports that he feels "okay" and nods in agreement when I ask if he feels improved. He cannot elaborate on how he feels improved. Patient denies any new concerns. Specifically denies side effects, discomfort, pain or hallucinations. Patient is internally preoccupied and guarded though not responding to internal stimuli. Staff note that he continues to be oddly related, aloof and isolative on the unit. He keeps to herself and needs a lot of encouragement by staff to verbally communicate. He doesn't attend groups. Nonetheless he has been compliant and there have been no major behavioral issues. Diagnostic Results: Psychosis NOS Rule out major depressive disorder, severe with psychosis Rule out OCD Medication Change: No ( ) Medical Record Reviewed: Yes Mental Status Examination - Cognitive Function Orientation: Person (Follow-up), Place, Situation, Time Attention: Poor (s) Concentration: Poor Association: WNL (some improvement) Fund of Knowledge: WNL - Mood Mood: Neutral ("....") - Affect Affect: Flat - Formal Thought Process Formal Thought Process: Paranoia (cannot be excluded) - Suicidal Ideation Suicidal Ideation: No - Homicidal Ideation Homicidal Ideation: No Goal/Treatment Plan - Goal/Treatment Plan Need for Continued Stay: Remain at risks for inpatient hospitalization, Severe depression anxiety, Discharge may exacerbated symptoms, Severe functional impairment Progress Toward Problem(s) and Goals/Treatment Plan: * c/w current treatment and plan * No new weekend lab results thus far * Vitals reviewed and noted below: Selected Entries 05/31/18 05/31/18 07:08 16:10 Temperature 98.0 F Pulse Rate 82 72 Respiratory 20 Rate Blood Pressure 108/58 L 113/63 Estimated Date of D/C: 06/03/18
--- NOTE | 2018-06-02 09:29 | PCM.PYCHPN ---
Psychiatric Progress Note - Psychiatric Progress Note Patient seen today, length of contact: 30 minutes Problems Identified/Issues Discussed: I reviewed recent notes and patient was interviewed at bedside again. He is oriented x3 and superficially cooperative with my questioning. Remembers me from my visits last weekend and yesterday. He still doesn't appear engaged or motivated but smiles during our interaction. Remains minimally verbal despite my encouragement. Patient reports that he feels "okay" and nods in agreement when I ask if he feels improved. He cannot elaborate on how he feels improved. Patient denies any new concerns. Specifically denies side effects, discomfort, pain or h allucinations. Patient is internally preoccupied and guarded though not responding to internal stimuli. He is consistent with his responses during repeated questioning. Staff note that he continues to be oddly related, aloof and isolative on the unit. He keeps to herself and needs a lot of encouragement by staff to verbally communicate. He doesn't attend groups. Nonetheless he has been compliant and there have been no major behavioral issues. Diagnostic Results: Psychosis NOS Rule out major depressive disorder, severe with psychosis Rule out OCD Medication Change: No ( ) Medical Record Reviewed: Yes Mental Status Examination - Cognitive Function Orientation: Person (Follow-up), Place, Situation, Time Attention: Poor (s) Concentration: Poor Association: WNL (some improvement) Fund of Knowledge: WNL - Mood Mood: Neutral ("....") - Affect Affect: Flat - Speech Additional comments: selectively mute, needs much prompting to respond verbally - Formal Thought Process Formal Thought Process: Paranoia (cannot be excluded) - Suicidal Ideation Suicidal Ideation: No - Homicidal Ideation Homicidal Ideation: No Goal/Treatment Plan - Goal/Treatment Plan Need for Continued Stay: Remain at risks for inpatient hospitalization, Severe depression anxiety, Discharge may exacerbated symptoms, Severe functional impairment Progress Toward Problem(s) and Goals/Treatment Plan: * c/w current treatment and plan * No new weekend lab results * Vitals reviewed and noted below: Selected Entries 06/01/18 06/01/18 07:34 16:00 Temperature 98.0 F Pulse Rate 94 H 111 H Respiratory 20 Rate Blood Pressure 116/65 135/76 Estimated Date of D/C: 06/03/18
--- NOTE | 2018-06-03 16:33 | PCM.PYCHPN ---
Psychiatric Progress Note - Psychiatric Progress Note Patient seen today, length of contact: 30 minutes Patient Chief Complaint: "...."pt was just shrugging his shoulders, not talking, smiling inappropriately Problems Identified/Issues Discussed: Symptoms, reasons for not talking, family meeting, future plans. Medical Problems: See HPI Diagnostic Results: 05/21/18 17:45 05/21/18 17:45 Lab Results 05/22/18 06:50: RPR Nonreactive 05/22/18 06:50: TSH 3rd Generation 0.85 05/22/18 06:50: Fasting Glucose 78, Triglycerides 80, Cholesterol 158, LDL Cholesterol Direct 79, HDL Cholesterol 56 05/21/18 17:45: Alcohol, Quantitative < 10 05/21/18 17:45: Salicylates < 1 L, Acetaminophen < 10.0 L 05/21/18 17:45: Urine Opiates Screen Negative, Urine Methadone Screen Negative, Ur Barbiturates Screen Negative, Ur Phencyclidine Scrn Negative, Ur Amphetamines Screen Negative, U Benzodiazepines Scrn Negative, U Oth Cocaine Metabols Negative, U Cannabinoids Screen Negative 05/21/18 17:45: Sodium 139, Potassium 4.9, Chloride 99, Carbon Dioxide 29, Anion Gap 17, BUN 19, Creatinine 0.9, Est GFR ( Amer) > 60, Est GFR (Non-Af Amer) > 60, Random Glucose 80, Calcium 10.2, Total Bilirubin 0.9, AST 20, ALT 11, Alkaline Phosphatase 67, Total Protein 8.7 H, Albumin 5.1 H, Globulin 3.6, Albumin/Globulin Ratio 1.4 05/21/18 17:45: Urine Color Yellow, Urine Appearance Clear, Urine pH 6.0, Ur Specific [place] >= 1.030, Urine Protein 30 H, Urine Glucose (UA) Negative, Urine Ketones 40 H, Urine Blood Negative, Urine Nitrate Negative, Urine Bilirubin Small H, Urine Urobilinogen 0.2, Ur Leukocyte Esterase Negative, Urine RBC None, Urine WBC 0 - 2, Ur Epithelial Cells 0 - 2, Urine Bacteria Few, Urine Other Usperm 05/21/18 17:45: WBC 6.1, RBC 5.27, Hgb 16.5, Hct 46.2, MCV 87.7, MCH 31.3, MCHC 35.7, RDW 12.2, Plt Count 309, MPV 10.3, Neut % (Auto) 46.3 L, Lymph % (Auto) 42.2 H, [place] % (Auto) 10.2 H, Eos % (Auto) 0.8 L, Baso % (Auto) 0.5, Lymph # (Auto) 2.6, [place] # (Auto) 0.6, Eos # (Auto) 0.1, Baso # (Auto) 0.03, Absolute Neuts (auto) 2.80 Vital Signs Temp Pulse Resp BP Pulse Ox 05/23/18 07:03 97.3 F L 57 L 20 124/58 L 05/22/18 16:00 98 H 124/72 05/22/18 07:28 97.0 F L 51 L 20 106/72 05/21/18 20:58 98 F 91 H 18 130/74 100 05/21/18 20:03 97.8 F 78 18 134/81 98 05/21/18 19:23 97.8 F 78 18 134/81 98 05/21/18 16:06 98.4 F 107 H 18 151/110 H 97 DSM 5 Symptoms Update: Shortly, patient is a 27yr old male presently residing in [facility] with his mother and brother not known previous psychiatric history, denied history of suicidal attempts, patient was brought in by his mother for evaluation of bizarre/disorganized behavior, patient was talking nonsense, self isolating, patient signed consent for treatment only because "I wanted to please my mom", patient requires further evaluation, stabilization, medication adjustment. 05/31/18: Patient was seen at the family meeting, pt's mother Karlene Menon([phone]), SW and this conventional mortgage underwriter participated. see previous note for more detailed info. Patient was seen today at the treatment team meeting, patient was compliant with his assignment and wrote down his goals which are, "Become a better student, passed all courses Accept a job that will help my schooling Learn how to budget financially Shadow golTrada; Catty Perfect goals swings Accept that 1-2-day is more than enough" Considering the above patient still presented to be disorganized, still not talking, over the weekend patient presented to be internally preoccupied Medication teaching provided, symptoms most likely related to psychosis, pt does not talk for the past 10days. at the same time pt has some positive changes, pt does not have obsessive s howering, pt is more visible in the unit, started to attend groups. So far patient tolerates medications well, no side effects observed or reported, aims 0, no EPS impression: DSM 5 Diagnosis: Psychosis NOS Rule out major depressive disorder, severe with psychosis Rule out OCD Medication Change: Yes (Prozac increased, haldol 1mg amhs) Medical Record Reviewed: Yes Consults ordered or reviewed: Neurology consult was called Mental Status Examination - Cognitive Function Orientation: Person (Follow-up), Place, Situation, Time Attention: Poor (s) Concentration: Poor Association: WNL (some improvement) Fund of Knowledge: WNL - Mood Mood: Neutral ("....") - Affect Affect: Flat - Formal Thought Process Formal Thought Process: Paranoia (cannot be excluded) - Suicidal Ideation Suicidal Ideation: No - Homicidal Ideation Homicidal Ideation: No Goal/Treatment Plan - Goal/Treatment Plan Need for Continued Stay: Remain at risks for inpatient hospitalization, Severe depression anxiety, Discharge may exacerbated symptoms, Severe functional impairment Progress Toward Problem(s) and Goals/Treatment Plan: consultation for discharge plan and social issues Med management: Risperdal 3mg twice a day and 3mg at the nighttime for psychosis Ativan 1 mg daily and 2mg hs for catatonia possible anxiety prozac 60mg po daily for depression/anxiety/OCD cogentin 1mg amhs for possible EPS haldol 1mg amhs for psychosis ambien d/c Collateral information will be obtained from patient's family Family meeting requested Follow up on labs Will monitor closely Pt was educated about risk/benefits and alternatives of medications, coping strategies (safety plan, suicide prevention), relapse prevention, importance of follow up with psychiatrist and therapist, stay away from drugs/alcohol/smoking Family meeting appreciated May 31, 2018 Estimated Date of D/C: 06/05/18
[2018-06-03] MEDS: Haloperidol Lactate 2 mg/ml Liquid PO SCH (21:28)
[2018-06-04 07:24] VITALS: RESP 20; TEMP 97.5
[2018-06-04] MEDS: Haloperidol Lactate 2 mg/ml Liquid PO SCH (09:47)
--- NOTE | 2018-06-04 15:18 | PCM.PYCHDC ---
Mental Status Examination - Mental Status Examination Orientation: Person, Place, Situation, Time Memory: Intact Mood: Neutral Affect: Broad (at times pt smiles inappropriately) Attention: WNL Concentration: WNL Fund of Knowledge: WNL Formal Thought Process: Other (mildly disorganized) Description of patient's judgement and insight: improved insight, pt was compliant with meds and unit rules, no agitation, no aggression Psychotic Thoughts and Behaviors: pt was not talking for the past 10days, today pt was able to give this policy writer typist few words, at the time of admission pt presented to be disorganized. at the time of d/c, pt presented much better with some residual disorganization of his thoughts. Suicidal Ideation: No Current Homicidal Ideation?: No Plan: pt adamantly denied thoughts of harming self or others. Discharge Summary - Discharge Note Reason for Hospitalization: Patient was admitted to the psychiatric inpatient unit for evaluation and stabilization of disorganized thoughts and behavior, acting inappropriately, inability to take care of himself. Psychiatric History (includes Medical, Family, Personal Hx): See HPI Laboratory Data: 05/21/18 17:45 05/21/18 17:45 Lab Results 05/25/18 06:30: Vitamin B12 543 05/22/18 06:50: RPR Nonreactive 05/22/18 06:50: TSH 3rd Generation 0.85 05/22/18 06:50: Fasting Glucose 78, Triglycerides 80, Cholesterol 158, LDL Cholesterol Direct 79, HDL Cholesterol 56 05/21/18 17:45: Alcohol, Quantitative < 10 05/21/18 17:45: Salicylates < 1 L, Acetaminophen < 10.0 L 05/21/18 17:45: Urine Opiates Screen Negative, Urine Methadone Screen Negative, Ur Barbiturates Screen Negative, Ur Phencyclidine Scrn Negative, Ur Amphetamines Screen Negative, U Benzodiazepines Scrn Negative, U Oth Cocaine Metabols Negative, U Cannabinoids Screen Negative 05/21/18 17:45: Sodium 139, Potassium 4.9, Chloride 99, Carbon Dioxide 29, Anion Gap 17, BUN 19, Creatinine 0.9, Est GFR ( Amer) > 60, Est GFR (Non-Af Amer) > 60, Random Glucose 80, Calcium 10.2, Total Bilirubin 0.9, AST 20, ALT 11, Alkaline Phosphatase 67, Total Protein 8.7 H, Albumin 5.1 H, Globulin 3.6, Albumin/Globulin Ratio 1.4 05/21/18 17:45: Urine Color Yellow, Urine Appearance Clear, Urine pH 6.0, Ur Specific [place] >= 1.030, Urine Protein 30 H, Urine Glucose (UA) Negative, Urine Ketones 40 H, Urine Blood Negative, Urine Nitrate Negative, Urine Bilirubin Small H, Urine Urobilinogen 0.2, Ur Leukocyte Esterase Negative, Urine RBC None, Urine WBC 0 - 2, Ur Epithelial Cells 0 - 2, Urine Bacteria Few, Urine Other Usperm 05/21/18 17:45: WBC 6.1, RBC 5.27, Hgb 16.5, Hct 46.2, MCV 87.7, MCH 31.3, MCHC 35.7, RDW 12.2, Plt Count 309, MPV 10.3, Neut % (Auto) 46.3 L, Lymph % (Auto) 42.2 H, [place] % (Auto) 10.2 H, Eos % (Auto) 0.8 L, Baso % (Auto) 0.5, Lymph # (Auto) 2.6, [place] # (Auto) 0.6, Eos # (Auto) 0.1, Baso # (Auto) 0.03, Absolute Neuts (auto) 2.80 Vital Signs Temp Pulse Resp BP Pulse Ox 06/04/18 07:23 97.5 F L 116 H 20 133/65 06/03/18 15:57 97 H 106/60 06/03/18 07:00 98 H 18 136/87 06/02/18 07:00 97.8 F 88 18 118/76 06/01/18 16:00 111 H 135/76 06/01/18 07:34 98.0 F 94 H 20 116/65 05/31/18 16:10 72 113/63 05/31/18 07:08 98.0 F 82 20 108/58 L 05/30/18 16:00 69 130/71 05/30/18 07:18 97.3 F L 75 20 103/67 05/29/18 16:00 109 H 116/65 05/29/18 07:00 98.1 F 69 20 107/56 L 05/28/18 16:00 56 L 120/79 05/28/18 07:00 97.8 F 88 18 133/72 05/27/18 16:00 69 115/62 05/27/18 07:23 97.9 F 74 20 128/54 L 05/26/18 15:53 74 126/70 05/26/18 07:07 97.8 F 77 16 117/60 05/25/18 16:17 74 121/68 05/25/18 07:00 98 F 68 18 101/51 L 05/24/18 16:43 79 110/58 L 05/24/18 07:33 97.8 F 80 20 119/70 05/23/18 16:00 71 120/64 05/23/18 07:03 97.3 F L 57 L 20 124/58 L 05/22/18 16:00 98 H 124/72 05/22/18 07:28 97.0 F L 51 L 20 106/72 05/21/18 20:58 98 F 91 H 18 130/74 100 05/21/18 20:03 97.8 F 78 18 134/81 98 05/21/18 19:23 97.8 F 78 18 134/81 98 05/21/18 16:06 98.4 F 107 H 18 151/110 H 97 Consultations:: List each consultation separately and include: 1. Reason for request. 2. Findings. 3. Follow-up Consultations: Neurology consult was called please see notes for more detailed info Summary of Hospital Course include:: 1. Description of specific treatment plan utilized for patients during their course of treatmen. 2. Summarize the time- course for resolution of acute symptoms and/or regressed behaviors. 3. Describe issues identified and worked on during hospitalization. 4. Describe medication utilized. 5. Describe medical problems identified and treated. 6. Reassessment of suicide risk Summary of Hospital Course: Shortly, patient is a 27yr old male presently residing in [facility] with his mother and brother not known previous psychiatric history, denied history of suicidal attempts, patient was brought in by his mother for evaluation of bizarre/disorganized behavior, patient was talking nonsense, self isolating, patient signed consent for treatment only because "I wanted to please my mom", patient requires further evaluation, stabilization, medication adjustment. As per nursing staff observation, since the morning time patient took 3 showers, it took 2 hours for the patient to show up for breakfast, patient is constantly washing his hands, appears to be disorganized, internally preoccupied. during this hospitalization pt became mute, was not talking for the past 10 days, family meeting took place with PALMA, pt, PALMA and this policy writer typist, please see notes for more detailed info. pt was seen by neurologist, no organic deficit found, pt had MRI of his head. pt was relatively stabilized on the following medications: Risperdal 3mg twice a day and 3mg at the nighttime for psychosis Ativan 1 mg daily and 2mg hs for catatonia possible anxiety prozac 60mg po daily for depression/anxiety/OCD cogentin 1mg amhs for possible EPS pt tolerated meds well, no side effects observed or reported. AIMS 0, no EPS. pt's mother visited pt evening 06/03/18, reported that pt deems ready for d/c. pt was seen 06/04/18, pt was able to give this policy writer typist few answers, reported that he is ready for discharge. as per staff pt participates in unit activities, no agitation/no aggression/showering only two times a day. as per treatment team pt deems ready for d/c at the moment of d/c pt presented well, pose no imminent danger to self or others. patient [facility] be [facility], time and address provided to the pt, (see SW note for more detailed information). It is a patient responsibility to follow up with outpatient clinic, PMD as well as specialists In case patient will need to obtain results of studies pending at discharge, patient was provided with contact information of Psychiatric Inpatient unit [phone] as well as Medical Record Department [phone], as well as [facility] team [phone]. pt denied using drugs, denied alcohol consumption, denies smoking pt was provided with prescriptions (see medication reconciliation form) Pt was educated about safety plan in case of worsening of symptoms or in case of suicidal or homicidal ideation call 911 or go to the nearest ER, also was educated to take meds as prescribed and stay away from drugs, pt verbalized understanding. 05/21/18 17:45 05/21/18 17:45 Lab Results 05/22/18 06:50: TSH 3rd Generation 0.85 05/22/18 06:50: Fasting Glucose 78, Triglycerides 80, Cholesterol 158, LDL Cholesterol Direct 79, HDL Cholesterol 56 05/21/18 17:45: Alcohol, Quantitative < 10 05/21/18 17:45: Salicylates < 1 L, Acetaminophen < 10.0 L 05/21/18 17:45: Urine Opiates Screen Negative, Urine Methadone Screen Negative, Ur Barbiturates Screen Negative, Ur Phencyclidine Scrn Negative, Ur Amphetamines Screen Negative, U Benzodiazepines Scrn Negative, U Oth Cocaine Metabols Negative, U Cannabinoids Screen Negative 05/21/18 17:45: Sodium 139, Potassium 4.9, Chloride 99, Carbon Dioxide 29, Anion Gap 17, BUN 19, Creatinine 0.9, Est GFR ( Amer) > 60, Est GFR (Non-Af Amer) > 60, Random Glucose 80, Calcium 10.2, Total Bilirubin 0.9, AST 20, ALT 11, Alkaline Phosphatase 67, Total Protein 8.7 H, Albumin 5.1 H, Globulin 3.6, Albumin/Globulin Ratio 1.4 05/21/18 17:45: Urine Color Yellow, Urine Appearance Clear, Urine pH 6.0, Ur Specific [place] >= 1.030, Urine Protein 30 H, Urine Glucose (UA) Negative, Urine Ketones 40 H, Urine Blood Negative, Urine Nitrate Negative, Urine Bilirubin Small H, Urine Urobilinogen 0.2, Ur Leukocyte Esterase Negative, Urine RBC None, Urine WBC 0 - 2, Ur Epithelial Cells 0 - 2, Urine Bacteria Few, Urine Other Usperm 05/21/18 17:45: WBC 6.1, RBC 5.27, Hgb 16.5, Hct 46.2, MCV 87.7, MCH 31.3, MCHC 35.7, RDW 12.2, Plt Count 309, MPV 10.3, Neut % (Auto) 46.3 L, Lymph % (Auto) 42.2 H, [place] % (Auto) 10.2 H, Eos % (Auto) 0.8 L, Baso % (Auto) 0.5, Lymph # (Auto) 2.6, [place] # (Auto) 0.6, Eos # (Auto) 0.1, Baso # (Auto) 0.03, Absolute Ne uts (auto) 2.80 Vital Signs Temp Pulse Resp BP Pulse Ox 05/22/18 07:28 97.0 F L 51 L 20 106/72 03/19/19 20:58 98 F 91 H 18 130/74 100 05/21/18 20:03 97.8 F 78 18 134/81 98 05/21/18 19:23 97.8 F 78 18 134/81 98 05/21/18 16:06 98.4 F 107 H 18 151/110 H 97 - Diagnosis (1) Psychosis Current Visit: Yes Status: Acute Priority: Medium (2) OCD (obsessive compulsive disorder) Current Visit: Yes Status: Acute Priority: High - Final Diagnosis (DSM 5) Condition upon Discharge: GOOD Disposition: HOME/ ROUTINE Follow-up Treatment Plan: [facility] will be [facility], information about follow up appointment, time and address provided to the pt, (see SW note for more detailed information). It is a patient responsibility to follow up with outpatient clinic, PMD as well as specialists In case patient will need to obtain results of studies pending at discharge, patient was provided with contact information of Psychiatric Inpatient unit [phone] as well as Medical Record Department [phone], as well as [facility] team [phone]. pt denied using drugs, denied alcohol consumption, denies smoking pt was provided with prescriptions (see medication reconciliation form) Pt was educated about safety plan in case of worsening of symptoms or in case of suicidal or homicidal ideation call 911 or go to the nearest ER, also was educated to take meds as prescribed and stay away from drugs, pt verbalized understanding. Prescriptions/Medication Reconciliation: Benztropine [Cogentin] 1 mg PO HS #30 tab FLUoxetine [Prozac] 20 mg PO DAILY #14 cap Fluoxetine HCl [Prozac] 40 mg PO DAILY #14 capsule LORazepam [Ativan] 1 mg PO DAILY #14 tab LORazepam [Ativan] 2 mg PO HS #14 tab risperiDONE [RisperDAL Tab] 3 mg PO AMHS #30 tab - Smoking Cessation Smoking Cessation Medication prescribed: No Reason for not providing: denied smoking - Antipsychotic Medications Pt discharged on 2 or more routine antipsychotic medications: No
[2018-06-04 18:39] VITALS: BP 111/64; PULSE 109
== END 2018-06-04 18:10 | disposition home or self-care (01) | DRG 430 ==
LOC: ED 15:33 → ERH 19:36 → PSYC 20:35
PROVIDERS: ADMIT Psychiatry & Neurology Psychiatry; ATTEND Psychiatry & Neurology Psychiatry
DX: F29 Unspecified psychosis not due to a substance or known physiological condition (principal); F42.9 Obsessive-compulsive disorder, unspecified; F20.2 Catatonic schizophrenia; Z81.8 Family history of other mental and behavioral disorders; F12.11 Cannabis abuse, in remission; F41.8 Other specified anxiety disorders; F32.89 Other specified depressive episodes